=== PATIENT | female | born 1970 | race Caucasian/White ===

== ENCOUNTER 2017-09-09 01:01 | Emergency (ER) | payer OTHER, BC ==
[2017-09-09] MEDS ORDERED: Acetaminophen/HYDROcodone 325-7.5 MG Tab PO ONE (01:21)
--- NOTE | 2017-09-09 01:24 | EDM.PDOC ---
ED HPI GENERAL MEDICAL PROBLEM - General Chief Complaint: Lower Extremity Injury/Pain Stated Complaint: HURT RIGHT KNEE Time Seen by Provider: 09/09/17 01:15 - History of Present Illness INITIAL COMMENTS - FREE TEXT/NARRATIVE: HISTORY AND PHYSICAL: History of present illness: The patient is a 47 y/o female who presents complaints of right knee pain that started a day and a half ago when she slipped but did not fall to the ground. The patient states this occurred at work and she slipped and twisted her right knee but did not fall completely and has had persistent pain to the right knee since that time. Patient has no history of any injury in the past and has no proximal hip or thigh pain and no distal leg ankle or foot discomfort and no neurosensory changes in the leg. She has noticed significant swelling to the knee and has continued with her normal activities including weightbearing and working despite the pain and the injury. She has not been placing ice on it and has only taken one dose of ibuprofen earlier this evening. Please note that the patient did not fall completely to the ground she did not her head neck or back and has no head neck or back pain and no other systemic complaints Review of systems: As per history of present illness and below otherwise all systems reviewed and negative. Past medical history: As per history of present illness and as reviewed below otherwise noncontributory. Surgical history: As per history of present illness and as reviewed below otherwise noncontributory. Social history: No reported history of drug or alcohol abuse. Family history: As per history of present illness and as reviewed below otherwise noncontributory. Physical exam: Gen.: Well-developed well-nourished female who is nontoxic and uncomfortable with any movement of the lower extremity. Her vital signs been noted by me including her blood pressure HEENT: Atraumatic, normocephalic, negative for conjunctival pallor or scleral icterus, mucous membranes moist, throat clear, neck supple, nontender, trachea midline. Lungs: Clear to auscultation, breath sounds equal bilaterally, chest nontender. Heart: S1S2, regular rate and rhythm no overt murmurs Abdomen: Soft, nondistended, nontender. NABS Pelvis: Stable nontender. Genitourinary: Deferred. Rectal: Deferred. Extremities: Atraumatic with the exception of the right knee where there is diffuse soft tissue swelling and obviously seen suprapatellar effusion and there is diffuse tenderness more laterally at the knee without any crepitus or palpable bony deformities. The proximal thigh and hip are nontender and the distal leg calf ankle and foot are intact without tenderness swelling ecchymosis or neurosensory changes. The legs are, negative for cords or calf pain. Neurovascular unremarkable. Neuro: Awake, alert, oriented. Cranial nerves II through XII unremarkable. Cerebellum unremarkable. Motor and sensory unremarkable throughout. Exam nonfocal. Diagnostics: X-ray right knee Therapeutics: [place], French bandage and knee immobilizer, crutches Discussed with the patient her mild to moderate degenerative changes of the knee as well as the effusion but no fracture. We will place a french knee immobilizer crutches and I will refer her to orthopedics as she will need to have this further evaluated. I have strictly advised her that she cannot weight- bear until she is followed up and I will give her medications from [facility] to use for pain if the ibuprofen does not work. I have discussed with the patient her blood pressure and need to get that followed up and she has no current symptomatology for hypertension and her pain issue may be contributing to it but this will need follow-up. She states understanding. Impression: Right knee injury with effusion, rule out ligamentous injury, evidence of degenerative changes Definitive disposition and diagnosis as appropriate pending reevaluation and review of above. right knee Pain Score (Numeric/FACES): 10 - Related Data Allergies Allergy/AdvReac Type Severity Reaction Status Date / Time codeine Allergy Hives Verified 09/09/17 01:17 Home Meds: Home Meds . [No Known Home Meds] 09/09/17 [History] Review of Systems - Review of Systems Review Of Systems: ROS reveals no pertinent complaints other than HPI. ED EXAM, GENERAL - Physical Exam Exam: See Below (See dictation) Course - Vital Signs Last Recorded V/S: Last Vital Signs Temp 36.4 C 09/09/17 01:18 Pulse 79 09/09/17 01:18 Resp 18 09/09/17 01:18 BP 193/122 H 09/09/17 01:27 Pulse Ox 98 09/09/17 01:18 - Orders/Labs/Meds Orders: Active Orders 24 hr Category Date Time Status Knee 3V Rt [CR] Stat Exams 09/09/17 01:21 Taken DME for Discharge [COMM] Stat Oth 09/09/17 02:01 Ordered Meds: Medications Discontinued Medications Generic Name Dose Route Start Last Admin Trade Name Matt PRN Reason Stop Dose Admin Hydrocodone Bitart/Acetaminophen 1 tab 09/09/17 01:21 09/09/17 01:28 [place] 325-7.5 Mg PO 09/09/17 01:22 1 tab ONETIME ONE Administration Departure - Departure Time of Disposition: 02:02 Disposition: Home, Self-Care 01 Condition: Good Clinical Impression: Right knee injury Qualifiers: Encounter type: initial encounter Qualified Code(s): S89.91XA - Unspecified injury of right lower leg, initial encounter - Discharge Information Referrals: PCP,None [Primary Care Provider] - Forms: ED Department Discharge Additional Instructions: The following information is given to patients seen in the emergency department who are being discharged to home. This information is to outline your options for follow-up care. We provide all patients seen in our emergency department with a follow-up referral. The need for follow-up, as well as the timing and circumstances, are variable depending upon the specifics of your emergency department visit. If you don't have a primary care physician on staff, we will provide you with a referral. We always advise you to contact your personal physician following an emergency department visit to inform them of the circumstance of the visit and for follow-up with them and/or the need for any referrals to a consulting specialist. The emergency department will also refer you to a specialist when appropriate. This referral assures that you have the opportunity for followup care with a specialist. All of these measure are taken in an effort to provide you with optimal care, which includes your followup. Under all circumstances we always encourage you to contact your private physician who remains a resource for coordinating your care. When calling for followup care, please make the office aware that this follow-up is from your recent emergency room visit. If for any reason you are refused follow-up, please contact the [facility] emergency department at and ask to speak to the emergency department charge nurse. [facility] Specialty Care--Orthopedic clinic Professional [address] [id number] [facility] Primary care- Internal Medicine and Family [address] [address] Please use ice to knee immobilizer as shown at all times and remove the French at sleep times and use crutches and do not weight-bear until you are followed up in the clinic. 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 Please also call and follow-up in our primary care clinic for your blood pressure and to get a recheck and further evaluation as indicated. Return to ER as needed and as discussed - My Orders Last 24 Hours: My Active Orders 09/09/17 01:21 Knee 3V Rt [CR] Stat 09/09/17 02:01 DME for Discharge [COMM] Stat - Assessment/Plan Last 24 Hours: My Active Orders 09/09/17 01:21 Knee 3V Rt [CR] Stat 09/09/17 02:01 DME for Discharge [COMM] Stat
--- NOTE | 2017-09-09 13:29 | CR ---
EXAM DATE: 09/09/17 PATIENT'S AGE: 47 Patient: ANA ZEPEDA Facility: [place], [place] Site . Site : 1970 Study: XRay Knee Right [id number]/6/2017 1:53:54 AM Ordering Physician: Doctor Bach Final Report: Indication: Twisted knee yesterday. Technique: Right knee three views. Comparison: None. Findings: No evidence of acute fracture or dislocation. Mild to moderate tricompartmental degenerative changes. No additional osseous abnormality. Moderate to large suprapatellar effusion. Impression: Moderate to large suprapatellar effusion. No evidence of acute fracture. Mild to moderate degenerative changes. Dictated by Kamari Tam MD @ 09/09/2017 1:59:19 AM Dictated by: Kamari Tam MD @ 09/09/2017 01:59:40 (Electronic Signature) Report Signed by Proxy. ALEJANDRA
== END 2017-09-09 02:40 | disposition home or self-care (01) ==
LOC: MW.ED 01:01
DX: S89.91XA Unspecified injury of right lower leg, initial encounter (principal); M25.461 Effusion, right knee; W18.49XA Other slipping, tripping and stumbling without falling, initial encounter; Z88.5 Allergy status to narcotic agent; M25.561 Pain in right knee; M11.261 Other chondrocalcinosis, right knee; M17.11 Unilateral primary osteoarthritis, right knee
CPT/HCPCS: 73562; 73564; 99283; A9270; 99284

== ENCOUNTER 2018-01-09 10:48 | Emergency (ER) | payer BC, OTHER ==
[2018-01-09] MEDS ORDERED: Diphtheria,Pertussis(Acell),Tetanus Vaccine 0.5 ML Syringe IM ONE (11:16)
[2018-01-09] MEDS ORDERED: Lidocaine 1% 20 ML MDV INJECT ONE (11:16)
[2018-01-09] MEDS ORDERED: Bacitracin Oint 1 GM U/D Packet TOP ONE (11:17)
--- NOTE | 2018-01-09 11:26 | EDM.PDOC ---
ED HPI GENERAL MEDICAL PROBLEM - General Chief Complaint: Lower Extremity Injury/Pain Stated Complaint: R LEG INJURY Time Seen by Provider: 01/09/18 10:58 Source of Information: Reports: Patient History Limitations: Reports: No Limitations - History of Present Illness INITIAL COMMENTS - FREE TEXT/NARRATIVE: HISTORY AND PHYSICAL: History of present illness: Patient is a 47-year-old female who presents to the emergency room today with complaints of a puncture wound to the right lateral thigh. She states last night a "cat tree" which is a plastic/would animal housing system, fell over and hit her in the thigh. This occurred at approximately 8 PM last night. Since that time the area continues to have minimal bleeding with serosanguineous drainage. Patient is unsure of her last tetanus. Review of systems: As per history of present illness and below otherwise all systems reviewed and negative. Past medical history: As per history of present illness and as reviewed below otherwise noncontributory. Surgical history: As per history of present illness and as reviewed below otherwise noncontributory. Social history: No reported history of drug or alcohol abuse. Family history: As per history of present illness and as reviewed below otherwise noncontributory. Physical exam: General: Well-developed and well-nourished 47-year-old female. Nontoxic appearing and in no acute distress. HEENT: Atraumatic, normocephalic, pupils equal and reactive bilaterally, negative for conjunctival pallor or scleral icterus, mucous membranes moist, throat clear, neck supple, nontender, trachea midline. No drooling or trismus noted. No meningeal signs Lungs: Clear to auscultation, breath sounds equal bilaterally, chest nontender. Heart: S1S2, regular rate and rhythm without overt murmur Abdomen: Soft, nondistended, nontender. Negative for masses or hepatosplenomegaly. Negative for costovertebral tenderness. Pelvis: Stable nontender. Genitourinary: Deferred. Rectal: Deferred. Skin: 3 cm gaping laceration to right mid lateral thigh. Otherwise skin is warm and dry. No lesions or rashes noted. Extremities: Moves all extremities per self; see skin assessment. She is negative for cords or calf pain. Denies any numbness or tingling. Able to weight -bear without any difficulty or deficits. Neurovascular unremarkable. Neuro: Awake, alert, oriented. Cranial nerves II through XII unremarkable. Cerebellum unremarkable. Motor and sensory unremarkable throughout. Exam nonfocal. Notes: Will update the patient's tetanus. Area was anesthetized with 1% lidocaine. Wound wash/irrigation of the gaping wound. 5-0 nylon, #4 interrupted loosely applied. Bacitracin, nonstick dressing applied with thorough education. Will place patient on Keflex TID x 10 days. We reviewed signs and symptoms that would prompt her to come back to the emergency room. Repeat BP prior to discharge was 178/96, she states she "its always high at the doctors office". She will follow up with per PCP as directed. She voices understanding of discharge instructions and is agreeable to plan of care. She denies any further questions at this time. Diagnostics: [] Therapeutics: DTaP, lidocaine, bacitracin, wound care, nonstick dressing Impression: Puncture wound Laceration Plan: 1. Please continue to monitor for signs of infection. He will be placed on an antibiotic, Keflex 1 tab 3 times daily 10 days. The area clean and dry. 2. Sutures to be removed in 10-12 days. 3. Tramadol has been prescribed for moderate to severe pain. This medication may cause drowsiness so do not take it will driving her needing to be functioning outside of the house. Tylenol and/or ibuprofen may be used. Rest, ice, elevate the extremity. 4. Follow-up with your primary caregiver in the next 1-2 days. Return to the ED as needed and as discussed. Definitive disposition and diagnosis as appropriate pending reevaluation and review of above. Onset Date: 01/08/18 Duration: Hour(s): Location: Reports: Lower Extremity, Right Right Upper Leg Pain Score (Numeric/FACES): 10 - Related Data Allergies Allergy/AdvReac Type Severity Reaction Status Date / Time codeine Allergy Hives Verified 09/09/17 01:17 Home Meds: Home Meds . 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 ankle surgery Social & Family History - Family History Family Medical History: Noncontributory - Tobacco Use Smoking Status *Q: Never Smoker - Caffeine Use Caffeine Use: Reports: Energy Drinks - Recreational Drug Use Recreational Drug Use: No Review of Systems - Review of Systems Review Of Systems: ROS reveals no pertinent complaints other than HPI. ED EXAM, GENERAL - Physical Exam Exam: See Below (See dictation) ED TRAUMA EXTREMITY PROCEDURES - Laceration/Wound Repair Right lateral Thigh Lac/Wound Length In cm: 3 Appearance: Subcutaneous Distal NVT: No Tendon Injury Local Anesthesia - Lidocaine (Xylocaine): 1% Plain Local Anesthetic Volume: 5cc Skin Prep: Chlorhexidine (Hibiciens), Saline, Sterile Drape, Other (Wound Wash) Saline Irrigation (cc's): 30 Exploration/Debridement/Repair: Wound Explored, In a Bloodless Field, No Foreign Material Found Closed With: Sutures Suture Size: other (5-0) # of Sutures: 4 Suture Type: Nylon, Interrupted Sterile Dressing Applied: Provider Tetanus Status Addressed: Yes Complications: No Progress/Comments: Nonstick dressing applied Course - Vital Signs Last Recorded V/S: Last Vital Signs Temp 98.9 F 01/09/18 11:11 Pulse 75 01/09/18 11:11 Resp 20 01/09/18 11:11 BP 221/131 H 01/09/18 11:11 Pulse Ox 99 01/09/18 11:11 - Orders/Labs/Meds Orders: Active Orders 24 hr Category Date Time Status Communication Order [RC] STAT Care 01/09/18 11:17 Ordered Vaccines to be Administered [RC] PER UNIT ROUTINE Care 01/09/18 11:16 Ordered Meds: Medications Discontinued Medications Generic Name Dose Route Start Last Admin Trade Name Freq PRN Reason Stop Dose Admin Bacitracin 1 dose 01/09/18 11:17 01/09/18 11:30 Bacitracin Oint 1 Gm TOP 01/09/18 11:18 1 dose ONETIME ONE Administration Diphtheria/Tetanus/Acell Pertussis 0.5 ml 01/09/18 11:16 01/09/18 11:30 Adacel IM 01/09/18 11:17 0.5 ml .ONCE ONE Administration Lidocaine HCl 20 ml 01/09/18 11:16 01/09/18 11:30 Xylocaine 1% INJECT 01/09/18 11:17 20 ml ONETIME ONE Administration Departure - Departure Time of Disposition: 11:45 Disposition: Home, Self-Care 01 Clinical Impression: Laceration, Puncture wound - Discharge Information Instructions: Puncture Wound, [id number], Laceration Care, Adult, Easy-to- Read Referrals: PCP,None [Primary Care Provider] - Forms: ED Department Discharge Additional Instructions: The following information is given to patients seen in the emergency department who are being discharged to home. This information is to outline your options for follow-up care. We provide all patients seen in our emergency department with a follow-up referral. The need for follow-up, as well as the timing and circumstances, are variable depending upon the specifics of your emergency department visit. If you don't have a primary care physician on staff, we will provide you with a referral. We always advise you to contact your personal physician following an emergency department visit to inform them of the circumstance of the visit and for follow-up with them and/or the need for any referrals to a consulting specialist. The emergency department will also refer you to a specialist when appropriate. This referral assures that you have the opportunity for follow-up care with a specialist. All of these measure are taken in an effort to provide you with optimal care, which includes your follow-up. Under all circumstances we always encourage you to contact your private physician who remains a resource for coordinating your care. When calling for follow-up care, please make the office aware that this follow-up is from your recent emergency room visit. If for any reason you are refused follow-up, please contact the [facility] Emergency Department at and asked to speak to the emergency department charge nurse. [facility] [address] [place] [id number] [facility] [address] [place] [id number] 1. Please continue to monitor for signs of infection. He will be placed on an antibiotic, Keflex 1 tab 3 times daily 10 days. The area clean and dry. 2. Sutures to be removed in 10-12 days. 3. Tramadol has been prescribed for moderate to severe pain. This medication may cause drowsiness so do not take it will driving her needing to be functioning outside of the house. Tylenol and/or ibuprofen may be used. Rest, ice, elevate the extremity. 4. Follow-up with your primary caregiver in the next 1-2 days. Return to the ED as needed and as discussed. - My Orders Last 24 Hours: My Active Orders 01/09/18 11:16 Vaccines to be Administered [RC] PER UNIT ROUTINE 01/09/18 11:17 Communication Order [RC] STAT - Assessment/Plan Last 24 Hours: My Active Orders 01/09/18 11:16 Vaccines to be Administered [RC] PER UNIT ROUTINE 01/09/18 11:17 Communication Order [RC] STAT
== END 2018-01-09 11:57 | disposition home or self-care (01) ==
LOC: MW.ED 10:48
DX: S71.131A Puncture wound without foreign body, right thigh, initial encounter (principal); I50.9 Heart failure, unspecified; Z23 Encounter for immunization; Z88.5 Allergy status to narcotic agent; W20.8XXA Other cause of strike by thrown, projected or falling object, initial encounter
CPT/HCPCS: 90471; 90715; 99283; 99283-25

== ENCOUNTER 2018-12-18 02:53 | Observation (INO) | payer SELFPAY ==
[2018-12-18] MEDS ORDERED: Sodium Chloride 0.9% 2.5 ML Syringe FLUSH PRN (03:07)
[2018-12-18] MEDS ORDERED: Sodium Chloride 0.9% 10 ML Syringe FLUSH PRN (03:07)
[2018-12-18] MEDS ORDERED: hydrALAZINE 20 MG/ML SDV IVPUSH ONE (03:07)
[2018-12-18 03:30] LABS: CHLORIDE,CL 106 mmol/L (98-107); SODIUM,NA 142 mmol/L (136-145)
--- NOTE | 2018-12-18 03:42 | CR ---
Indication: Chest pain, shortness of breath Technique: Chest 1 view Comparison: None Findings/Impression: Cardiac size is prominent. Normal superior mediastinum. With normal pulmonary vasculature. Lungs and pleural spaces are clear. No acute osseous abnormality. Dictated by Ynes Zheng MD @ Dec 18 2018 3:39AM Signed by Dr. Ynes Zheng @ Dec 18 2018 3:40AM
[2018-12-18] MEDS ORDERED: Levofloxacin/Dextrose 5%-Water 750 MG in Premix Bag 1 BAG IV ONE (05:03)
--- NOTE | 2018-12-18 05:06 | EDM.PDOC ---
ED HPI GENERAL MEDICAL PROBLEM - General Chief Complaint: Respiratory Problem Stated Complaint: CHEST PAIN Time Seen by Provider: 12/18/18 05:01 - History of Present Illness INITIAL COMMENTS - FREE TEXT/NARRATIVE: HISTORY AND PHYSICAL: History of present illness: Patient 48-year-old white female no significant past medical history presents with concern of chest pain cough or last 4 days she denies fever chills vomiting diarrhea or other complaints. Review of systems: As per history of present illness and below otherwise all systems reviewed and negative. Past medical history: As per history of present illness and as reviewed below otherwise noncontributory. Surgical history: As per history of present illness and as reviewed below otherwise noncontributory. Social history: No reported history of drug or alcohol abuse. Family history: As per history of present illness and as reviewed below otherwise noncontributory. Physical exam: HEENT: Atraumatic, normocephalic, pupils reactive, negative for conjunctival pallor or scleral icterus, mucous membranes moist, throat clear, neck supple, nontender, trachea midline. Lungs: Clear to auscultation, breath sounds equal bilaterally, chest nontender. Heart: S1S2, regular, negative for clicks, rubs, or JVD. Abdomen: Soft, nondistended, nontender. Negative for masses or hepatosplenomegaly. Negative for costovertebral tenderness. Pelvis: Stable nontender. Genitourinary: Deferred. Rectal: Deferred. Extremities: Atraumatic, negative for cords or calf pain. Neurovascular unremarkable. Neuro: Awake, alert, oriented. Cranial nerves II through XII unremarkable. Cerebellum unremarkable. Motor and sensory unremarkable throughout. Exam nonfocal. Diagnostics: CBC CMP troponin PT/INR chest x-ray blood cultures 2 lactate influenza screen Therapeutics: IV O2 monitor Levaquin 750 mg IV Impression: #1 pneumonia Definitive disposition and diagnosis as appropriate pending reevaluation and review of above. chest area Pain Score (Numeric/FACES): 6 - Related Data Allergies Allergy/AdvReac Type Severity Reaction Status Date / Time codeine Allergy Hives Verified 12/18/18 02:57 Home Meds: Home Meds . 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 ankle surgery Social & Family History - Family History Family Medical History: Noncontributory - Tobacco Use Smoking Status *Q: Never Smoker - Caffeine Use Caffeine Use: Reports: Soda - Recreational Drug Use Recreational Drug Use: No ED ROS GENERAL - Review of Systems Review Of Systems: ROS reveals no pertinent complaints other than HPI. ED EXAM, GENERAL - Physical Exam Exam: See Below (See dictation) Course - Vital Signs Last Recorded V/S: Last Vital Signs Temp 36.4 C 12/18/18 02:57 Pulse 85 12/18/18 04:17 Resp 19 12/18/18 04:17 BP 114/76 12/18/18 04:17 Pulse Ox 97 12/18/18 04:17 - Orders/Labs/Meds Orders: Active Orders 24 hr Category Date Time Status Cardiac Monitoring [RC] . DIRECTED Care 12/18/18 03:07 Active EKG Documentation Completion [RC] STAT Care 12/18/18 03:07 Active Pulse Oximetry [RC] CONTINUOUS Care 12/18/18 03:07 Active Sodium Chloride 0.9% [Saline Flush] Med 12/18/18 03:07 Active 10 ml FLUSH ASDIRECTED PRN Sodium Chloride 0.9% [Saline Flush] Med 12/18/18 03:07 Active 2.5 ml FLUSH ASDIRECTED PRN Saline Lock Insert [OM.PC] Stat Oth 12/18/18 03:07 Ordered Medication Orders Sodium Chloride (Saline Flush) 10 ml FLUSH ASDIRECTED PRN PRN Reason: Keep Vein Open Sodium Chloride (Saline Flush) 2.5 ml FLUSH ASDIRECTED PRN PRN Reason: Keep Vein Open Labs: Laboratory Tests 12/18/18 12/18/18 12/18/18 Range/Units 03:00 03:00 03:00 WBC 2.99 L (4.0-11.0) K/uL RBC 4.37 (4.30-5.90) M/uL Hgb 12.9 (12.0-16.0) g/dL Hct 39.8 (36.0-46.0) % MCV 91.1 (80.0-98.0) fL MCH 29.5 (27.0-32.0) pg MCHC 32.4 (31.0-37.0) g/dL RDW Std Deviation 55.9 (28.0-62.0) fl RDW Coeff of Raissa 17 H (11.0-15.0) % Plt Count 255 (150-400) K/uL MPV 11.20 (7.40-12.00) fL Neut % (Auto) 47.5 L (48.0-80.0) % Lymph % (Auto) 38.1 (16.0-40.0) % [place] % (Auto) 6.4 (0.0-15.0) % Eos % (Auto) 5.0 (0.0-7.0) % Baso % (Auto) 3.0 H (0.0-1.5) % Neut # (Auto) 1.4 (1.4-5.7) K/uL Lymph # (Auto) 1.1 (0.6-2.4) K/uL [place] # (Auto) 0.2 (0.0-0.8) K/uL Eos # (Auto) 0.2 (0.0-0.7) K/uL Baso # (Auto) 0.1 (0.0-0.1) K/uL Nucleated RBC % 0.0 /100WBC Nucleated RBCs # 0 K/uL INR 0.99 Sodium 142 (136-145) mmol/L Potassium 3.5 (3.5-5.1) mmol/L Chloride 106 (98-107) mmol/L Carbon Dioxide 25.9 (21.0-32.0) mmol/L BUN 9 (7.0-18.0) mg/dL Creatinine 0.8 (0.6-1.0) mg/dL Est Cr Clr Drug Dosing 93.38 mL/min Estimated GFR (MDRD) > 60.0 ml/min Glucose 119 H (74-106) mg/dL Calcium 8.4 L (8.5-10.1) mg/dL Total Bilirubin 0.3 (0.2-1.0) mg/dL AST 16 (15-37) IU/L ALT 16 (14-63) IU/L Alkaline Phosphatase 87 (46-116) U/L Troponin I < 0.050 (0.000-0.056) ng/mL Total Protein 8.1 (6.4-8.2) g/dL Albumin 3.1 L (3.4-5.0) g/dL Globulin 5.0 H (2.6-4.0) g/dL Albumin/Globulin Ratio 0.6 L (0.9-1.6) Meds: Medications Generic Name Dose Route Start Last Admin Trade Name Freq PRN Reason Stop Dose Admin Sodium Chloride 10 ml 12/18/18 03:07 Saline Flush FLUSH ASDIRECTED PRN Keep Vein Open Sodium Chloride 2.5 ml 12/18/18 03:07 Saline Flush FLUSH ASDIRECTED PRN Keep Vein Open Discontinued Medications Generic Name Dose Route Start Last Admin Trade Name Freq PRN Reason Stop Dose Admin Hydralazine HCl 10 mg 12/18/18 03:07 12/18/18 03:14 Apresoline IVPUSH 12/18/18 03:08 10 mg ONETIME ONE Administration Departure - Departure Time of Disposition: 05:06 Disposition: Refer to Observation Condition: Good Clinical Impression: Pneumonia, Chest pain - Discharge Information Referrals: PCP,None [Primary Care Provider] - - My Orders Last 24 Hours: My Active Orders 12/18/18 03:07 Cardiac Monitoring [RC] . DIRECTED EKG Documentation Completion [RC] STAT Pulse Oximetry [RC] CONTINUOUS Sodium Chloride 0.9% [Saline Flush] 10 ml FLUSH ASDIRECTED PRN Sodium Chloride 0.9% [Saline Flush] 2.5 ml FLUSH ASDIRECTED PRN Saline Lock Insert [OM.PC] Stat - Assessment/Plan Last 24 Hours: My Active Orders 12/18/18 03:07 Cardiac Monitoring [RC] . DIRECTED EKG Documentation Completion [RC] STAT Pulse Oximetry [RC] CONTINUOUS Sodium Chloride 0.9% [Saline Flush] 10 ml FLUSH ASDIRECTED PRN Sodium Chloride 0.9% [Saline Flush] 2.5 ml FLUSH ASDIRECTED PRN Saline Lock Insert [OM.PC] Stat
[2018-12-18] MEDS ORDERED: Sodium Chloride 0.9% 1,000 ML IV SCH (05:15)
--- NOTE | 2018-12-18 08:56 | PCM.HP ---
H&P History of Present Illness - General Date of Service: 12/18/18 Admit Problem/Dx: Admission Diagnosis/Problem Admission Diagnosis/Problem Atypical chest pain - History of Present Illness Initial Comments - Free Text/Narative: The patient is a 48-year-old female who presented to the ER overnight with sharp burning pain in her chest that radiated to both shoulders. She reports associated shortness of breath. She reports the pain gets worse with coughing. She reports she's been having episodes like this intermittently for the past 4 days. She also reports that when she has a coughing fit and her chest hurts, she develops tingling in her lips and fingers. She endorses subjective fevers but no nausea/vomiting She denies any history of [place], but does know she was diagnosed with hypertension in the past. She was supposed to follow-up with the primary care physician to manage her blood pressure, but she never did. On further questioning later she did endorse orthopnea and dyspnea on exertion as well as swelling in her legs. She denies known history of heart failure. In the ER, they workup included labs showed a white count of 2.99, negative troponin, negative influenza. Chest x-ray showed no acute cardiopulmonary process. EKG showed sinus rhythm with no ST elevations. In the ER, her blood pressure was 205/139, she was given 10 mg hydralazine and this improved. She was also started on IV fluids in the ER. chest area Pain Score (Numeric/FACES): 6 - Related Data Allergies/Adverse Reactions: Allergies Allergy/AdvReac Type Severity Reaction Status Date / Time codeine Allergy Hives Verified 12/18/18 02:57 Home Medications: Home Meds . 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 ankle surgery Social & Family History - Family History Family Medical History: Noncontributory - Tobacco Use Smoking Status *Q: Never Smoker - Caffeine Use Caffeine Use: Reports: Soda - Recreational Drug Use Recreational Drug Use: No H&P Review of Systems - Review of Systems: Review Of Systems: See Below General: Reports: Fever, Chills HEENT: Reports: Headaches, Sinus Congestion Pulmonary: Reports: Shortness of Breath, Cough Cardiovascular: Reports: Chest Pain, Dyspnea on Exertion, Orthopnea, Edema Gastrointestinal: Reports: No Symptoms Genitourinary: Reports: No Symptoms Musculoskeletal: Reports: No Symptoms Skin: Reports: No Symptoms Psychiatric: Reports: No Symptoms Neurological: Reports: No Symptoms Hematologic/Lymphatic: Reports: No Symptoms Immunologic: Reports: No Symptoms Exam - Exam Exam: See Below - Vital Signs Vital Signs: Last Vital Signs Temp 98.2 F 12/18/18 06:55 Pulse 86 12/18/18 06:55 Resp 18 12/18/18 06:55 BP 141/88 H 12/18/18 06:55 Pulse Ox 98 12/18/18 06:55 Weight: 89.086 kg - Exam General: Alert, Oriented, Cooperative HEENT: Conjunctiva Clear, Mucosa Moist & [place], Posterior Pharynx Clear Neck: Supple Lungs: Clear to Auscultation, Normal Respiratory Effort Cardiovascular: Regular Rate, Regular Rhythm GI/Abdominal Exam: Normal Bowel Sounds, Soft, Non-Tender, No Distention Extremities: Pedal Edema Skin: Warm, Dry, Intact Neurological: Cranial Nerves Intact Neuro Extensive - Mental Status: Alert, Oriented x3 Psychiatric: Alert, Normal Affect, Normal Mood - Patient Data Lab Results Last 24 hrs: Laboratory Results - last 24 hr 12/18/18 12/18/18 12/18/18 Range/Units 03:00 03:00 03:00 WBC 2.99 L (4.0-11.0) K/uL RBC 4.37 (4.30-5.90) M/uL Hgb 12.9 (12.0-16.0) g/dL Hct 39.8 (36.0-46.0) % MCV 91.1 (80.0-98.0) fL MCH 29.5 (27.0-32.0) pg MCHC 32.4 (31.0-37.0) g/dL RDW Std Deviation 55.9 (28.0-62.0) fl RDW Coeff of Raissa 17 H (11.0-15.0) % Plt Count 255 (150-400) K/uL MPV 11.20 (7.40-12.00) fL Neut % (Auto) 47.5 L (48.0-80.0) % Lymph % (Auto) 38.1 (16.0-40.0) % [place] % (Auto) 6.4 (0.0-15.0) % Eos % (Auto) 5.0 (0.0-7.0) % Baso % (Auto) 3.0 H (0.0-1.5) % Neut # (Auto) 1.4 (1.4-5.7) K/uL Lymph # (Auto) 1.1 (0.6-2.4) K/uL [place] # (Auto) 0.2 (0.0-0.8) K/uL Eos # (Auto) 0.2 (0.0-0.7) K/uL Baso # (Auto) 0.1 (0.0-0.1) K/uL Nucleated RBC % 0.0 /100WBC Nucleated RBCs # 0 K/uL INR 0.99 Sodium 142 (136-145) mmol/L Potassium 3.5 (3.5-5.1) mmol/L Chloride 106 (98-107) mmol/L Carbon Dioxide 25.9 (21.0-32.0) mmol/L BUN 9 (7.0-18.0) mg/dL Creatinine 0.8 (0.6-1.0) mg/dL Est Cr Clr Drug Dosing 93.38 mL/min Estimated GFR (MDRD) > 60.0 ml/min Glucose 119 H (74-106) mg/dL Calcium 8.4 L (8.5-10.1) mg/dL Total Bilirubin 0.3 (0.2-1.0) mg/dL AST 16 (15-37) IU/L ALT 16 (14-63) IU/L Alkaline Phosphatase 87 (46-116) U/L Troponin I < 0.050 (0.000-0.056) ng/mL Total Protein 8.1 (6.4-8.2) g/dL Albumin 3.1 L (3.4-5.0) g/dL Globulin 5.0 H (2.6-4.0) g/dL Albumin/Globulin Ratio 0.6 L (0.9-1.6) Result Diagrams: 12/18/18 03:00 12/18/18 03:00 Ke Results Last 24 hrs: Microbiology 12/18/18 03:12 Influenza Type A Antigen Screen - Final Nasopharyngeal Swab NEGATIVE INFLUENZA A VIRUS AG Influenza Type B Antigen Screen - Final NEGATIVE INFLUENZA B VIRUS AG Problem List Initiated/Reviewed/Updated: Yes Orders Last 24hrs: Active Orders 24 hr Category Date Time Status Patient Status [ADT] Stat ADT 12/18/18 05:14 Active Cardiac Monitoring [RC] . DIRECTED Care 12/18/18 03:07 Active EKG Documentation Completion [RC] STAT Care 12/18/18 03:07 Active Pulse Oximetry [RC] CONTINUOUS Care 12/18/18 03:07 Active Telemetry Monitoring [Cardiac Monitoring] [RC] Q8H Care 12/18/18 06:00 Active TROPONIN I [CHEM] Timed Lab 12/18/18 09:00 Ordered TROPONIN I [CHEM] Timed Lab 12/18/18 15:00 Ordered Sodium Chloride 0.9% [Normal Saline] 1,000 ml Med 12/18/18 05:15 Active IV ASDIRECTED Sodium Chloride 0.9% [Saline Flush] Med 12/18/18 03:07 Active 10 ml FLUSH ASDIRECTED PRN Sodium Chloride 0.9% [Saline Flush] Med 12/18/18 03:07 Active 2.5 ml FLUSH ASDIRECTED PRN Saline Lock Insert [OM.PC] Stat Oth 12/18/18 03:07 Ordered Medication Orders Sodium Chloride (Normal Saline) 1,000 mls @ 125 mls/hr IV ASDIRECTED REBECCA Last Admin: 12/18/18 05:46 Dose: 125 mls/hr Sodium Chloride (Saline Flush) 10 ml FLUSH ASDIRECTED PRN PRN Reason: Keep Vein Open Sodium Chloride (Saline Flush) 2.5 ml FLUSH ASDIRECTED PRN PRN Reason: Keep Vein Open Assessment/Plan Comment:: 1. Admit for observation 2. Code status- full 3. Vitals per routine 4. Strict I/Os 5. Diet- cardiac 6. DVT prophylaxis with SCDs 7. Atypical chest pain- possible URI vs HTN vs heart failure- we will watch her on telemetry and trend troponins. Due to her history of orthopnea and edema we will diuresis her with 40 mg IV Lasix. She will need an echo but that can not be done over the weekend. Will give her Tessalon perles for cough. 8. HTN- will start HCTZ
[2018-12-18] MEDS ORDERED: Furosemide 40 MG/4 ML VIAL IVPUSH ONE (11:10)
[2018-12-18] MEDS ORDERED: Ondansetron 4 MG/2 ML SDV IVPUSH PRN (11:23)
[2018-12-18] MEDS: Benzonatate 100 MG Cap PO PRN ×2 (12:01→19:59)
[2018-12-18] MEDS: Acetaminophen 325 MG Tab PO PRN ×2 (12:01→19:56)
[2018-12-18] MEDS: hydrALAZINE 20 MG/ML SDV IVPUSH PRN (13:18)
[2018-12-18] MEDS ORDERED: Albuterol/Ipratropium 3.0-0.5 MG/3 ML Neb Soln NEB PRN (15:32)
[2018-12-18] MEDS: guaiFENesin 600 MG Tab.ER PO SCH (18:25)
[2018-12-18] MEDS: Hydrochlorothiazide 12.5 MG Cap PO SCH (19:59)
[2018-12-19] MEDS: Acetaminophen 325 MG Tab PO PRN (03:02)
[2018-12-19] MEDS: hydrALAZINE 20 MG/ML SDV IVPUSH PRN (04:25)
[2018-12-19] MEDS ORDERED: Morphine 2 MG/ML Syringe IVPUSH PRN (04:42)
[2018-12-19 06:40] LABS: CHLORIDE,CL 101 mmol/L (98-107); SODIUM,NA 138 mmol/L (136-145)
[2018-12-19] MEDS: guaiFENesin 600 MG Tab.ER PO SCH (08:45)
[2018-12-19] MEDS ORDERED: Iopamidol 755 MG/ML 500 ML Multipack Bottle IVPUSH STA (10:25)
--- NOTE | 2018-12-19 11:02 | CT ---
INDICATION: Chest pain and short of breath TECHNIQUE : CT scan of the chest. CTA PE protocol. IV contrast. FINDINGS: Pulmonary arteries:No pulmonary artery filling defects. Heart/mediastinum:No adenopathy or pericardial effusion. Retrocardiac hiatal hernia. Lungs and pleura:No effusions or pneumothorax. Anterior 7 millimeter right middle lobe pulmonary nodule. Cluster of small nodules in the left lower lobe measuring between 2 millimeters and 3 millimeters. Image 37. Image 48. Scarring in the lower lobes. Abdomen/skeletal:Thoracic scoliosis no other significant skeletal abnormalities. Unremarkable limited upper abdomen. IMPRESSION: No signs for acute pulmonary embolus. Incidental pulmonary nodules are present suggest follow-up according to [employer] society guidelines. [employer] SOCIETY GUIDELINES - SOLID NODULES: SINGLE LOW RISK - nodule less than 6 mm: No routine follow-up. - nodule 6-8 mm: CT at 6-12 months, then consider CT at 18-24 months. - nodule greater than 8 mm: Consider CT at 3 months, PET/CT or tissue sampling. SINGLE HIGH RISK - nodule less than 6 mm: Optional CT at 12 months. - nodule 6-8 mm: CT at 6-12 months, then CT at 18-24 months. - nodule greater than 8 mm: Consider CT at 3 months, PET/CT or tissue sampling. MULTIPLE LOW RISK - nodule less than 6 mm: No routine follow-up. - nodule 6-8 mm: CT at 3-6 months, then consider CT at 18-24 months. - nodule greater than 8 mm: CT at 3-6 months, then consider CT at 18-24 months. MULTIPLE HIGH RISK - nodule less than 6 mm: Optional CT at 12 months. - nodule 6-8 mm: CT at 3-6 months, then at 18-24 months. - nodule greater than 8 mm: CT at 3-6 months, then at 18-24 months. LOW RISK = minimal or absent history of smoking or other known risk factors. HIGH RISK = history of smoking or other known risk factors. KNOWN RISK FACTORS: history of lung cancer in first-degree relative; exposure to asbestos, radon, or uranium. Please note that all CT scans at this facility use dose modulation, iterative reconstruction, and/or weight-based dosing when appropriate to reduce radiation dose to as low as reasonably achievable. Dictated by Mark Ramos MD @ Dec 19 2018 10:49AM Signed by Dr. Mark Ramos @ Dec 19 2018 11:00AM
[2018-12-19] MEDS ORDERED: cefTRIAXone 1 GM in Sodium Chloride 0.9% 50 ML IV SCH (15:15)
[2018-12-19] MEDS ORDERED: Azithromycin 500 MG in Sodium Chloride 0.9% 250 ML IV SCH (15:15)
--- NOTE | 2018-12-19 15:51 | PCM.DCSUM1 ---
Discharge Summary - Discharge Data Discharge Date: 12/19/18 Discharge Disposition: Home, Self-Care 01 Condition: Good - Patient Summary/Data Hospital Course: 48-year-old female who was admitted for chest pain. she presented with several day history of nonproductive cough. During her coughing fits she developes sharp pleuritiy pain in the left upper chest. She also reports several month history of shortness of breath, leg edema, tingling in the extremeties and vaginal bleeding. She was monitored overnight and ruled out for acute coronary syndrome with serail negative cardiac enzymes. CT scan of chest did not show PE. It did show 7mm nodule in right middle lobe which patient was informed of the recommendation of follow up CT in 6 months. Today the patient is agreeable to discharge. I suspect her acute illness is due to upper respiratory tract infection. During her stay she was noted to have elevated blood pressures and she was given a prescription of lisinopril. She is to follow up with her PCP at [facility]. - Discharge Plan Prescriptions/Med Rec: Lisinopril [Prinivil] 10 mg PO DAILY #30 tablet Home Medications: Home Meds Lisinopril [Prinivil] 10 mg PO DAILY #30 tablet 12/19/18 [Rx] Forms: ED Department Discharge Referrals: PCP,None [Primary Care Provider] - - Discharge Summary/Plan Comment DC Time >30 min.: No - Patient Data Vitals - Most Recent: Last Vital Signs Temp 36.6 C 12/19/18 11:00 Pulse 77 12/19/18 11:00 Resp 16 12/19/18 11:00 BP 157/97 H 12/19/18 11:00 Pulse Ox 97 12/19/18 11:00 Weight - Most Recent: 89.086 kg I&O - Last 24 hours: Intake & Output 12/19/18 12/19/18 12/19/18 06:59 14:59 22:59 Intake Total 400 Output Total 0 Balance 400 Lab Results - Last 24 hrs: Laboratory Results - last 24 hr 12/18/18 12/19/18 12/19/18 Range/Units 16:00 05:56 05:56 WBC 5.88 (4.0-11.0) K/uL RBC 4.31 (4.30-5.90) M/uL Hgb 12.6 (12.0-16.0) g/dL Hct 38.9 (36.0-46.0) % MCV 90.3 (80.0-98.0) fL MCH 29.2 (27.0-32.0) pg MCHC 32.4 (31.0-37.0) g/dL RDW Std Deviation 56.0 (28.0-62.0) fl RDW Coeff of Raissa 17 H (11.0-15.0) % Plt Count 247 (150-400) K/uL MPV 10.90 (7.40-12.00) fL Neut % (Auto) 70.7 (48.0-80.0) % Lymph % (Auto) 16.7 (16.0-40.0) % [place] % (Auto) 10.2 (0.0-15.0) % Eos % (Auto) 1.5 (0.0-7.0) % Baso % (Auto) 0.9 (0.0-1.5) % Neut # (Auto) 4.2 (1.4-5.7) K/uL Lymph # (Auto) 1.0 (0.6-2.4) K/uL [place] # (Auto) 0.6 (0.0-0.8) K/uL Eos # (Auto) 0.1 (0.0-0.7) K/uL Baso # (Auto) 0.1 (0.0-0.1) K/uL Nucleated RBC % 0.0 /100WBC Nucleated RBCs # 0 K/uL Sodium 138 (136-145) mmol/L Potassium 3.2 L (3.5-5.1) mmol/L Chloride 101 (98-107) mmol/L Carbon Dioxide 22.5 (21.0-32.0) mmol/L BUN 7 (7.0-18.0) mg/dL Creatinine 0.8 (0.6-1.0) mg/dL Est Cr Clr Drug Dosing 94.01 mL/min Estimated GFR (MDRD) > 60.0 ml/min Glucose 109 H (74-106) mg/dL Calcium 8.8 (8.5-10.1) mg/dL Urine Color RED Urine Appearance SLT CLOUDY Urine pH 6.5 (5.0-8.0) Ur Specific [place] 1.020 (1.001-1.035) Urine Protein 30 H (NEGATIVE) mg/dL Urine Glucose (UA) NEGATIVE (NEGATIVE) mg/dL Urine Ketones NEGATIVE (NEGATIVE) mg/dL Urine Occult Blood LARGE H (NEGATIVE) Urine Nitrite NEGATIVE (NEGATIVE) Urine Bilirubin NEGATIVE (NEGATIVE) Urine Urobilinogen 0.2 (<2.0) EU/dL Ur Leukocyte Esterase NEGATIVE (NEGATIVE) Urine RBC TOO NUMEROUS TO CT H (0-2/HPF) Urine WBC 0-1 (0-5/HPF) Ur Epithelial Cells FEW (NONE-FEW) Urine Bacteria FEW (NEGATIVE) Med Orders - Current: Current Medications Acetaminophen (Tylenol) 650 mg PO Q4H PRN PRN Reason: Pain/Fever Last Admin: 12/19/18 03:02 Dose: 650 mg Albuterol/Ipratropium (Duoneb 3.0-0.5 Mg/3 Ml) 3 ml NEB Q4HRRT PRN PRN Reason: Cough Last Admin: 12/18/18 17:02 Dose: 3 ml Benzonatate (Tessalon Perles) 100 mg PO TID PRN PRN Reason: Cough Last Admin: 12/18/18 19:59 Dose: 100 mg Guaifenesin (Mucinex) 600 mg PO BID REBECCA Last Admin: 12/19/18 08:45 Dose: 600 mg Hydralazine HCl (Apresoline) 10 mg IVPUSH Q4H PRN PRN Reason: Other Last Admin: 12/19/18 04:25 Dose: 10 mg Hydrochlorothiazide (Hydrochlorothiazide) 12.5 mg PO BEDTIME [facility] Last Admin: 12/18/18 19:59 Dose: 12.5 mg Morphine Sulfate (Morphine) 2 mg IVPUSH Q3H PRN PRN Reason: Pain (severe 7-10) Last Admin: 12/19/18 04:53 Dose: 2 mg Ondansetron HCl (Zofran) 4 mg IVPUSH Q4H PRN PRN Reason: Nausea/Vomiting Last Admin: 12/18/18 14:41 Dose: 4 mg Sodium Chloride (Saline Flush) 10 ml FLUSH ASDIRECTED PRN PRN Reason: Keep Vein Open Sodium Chloride (Saline Flush) 2.5 ml FLUSH ASDIRECTED PRN PRN Reason: Keep Vein Open Discontinued Medications Furosemide (Lasix) 40 mg IVPUSH NOW ONE Stop: 12/18/18 11:11 Last Admin: 12/18/18 12:01 Dose: 40 mg Hydralazine HCl (Apresoline) 10 mg IVPUSH ONETIME ONE Stop: 12/18/18 03:08 Last Admin: 12/18/18 03:14 Dose: 10 mg Levofloxacin/Dextrose 750 mg/ (Premix) 150 mls @ 100 mls/hr IV ONETIME ONE Stop: 12/18/18 06:32 Last Admin: 12/18/18 05:48 Dose: Not Given Sodium Chloride (Normal Saline) 1,000 mls @ 125 mls/hr IV ASDIRECTED REBECCA Last Admin: 12/18/18 05:46 Dose: 125 mls/hr Azithromycin 500 mg/ Sodium (Chloride) 250 mls @ 250 mls/hr IV Q24H REBECCA Ceftriaxone Sodium 1 gm/ (Sodium Chloride) 50 mls @ 100 mls/hr IV Q24H REBECCA Iopamidol (Isovue Multipack-370 (76%)) 50 ml IVPUSH ONETIME STA Stop: 12/19/18 10:26 Last Admin: 12/19/18 10:26 Dose: 50 ml
[2018-12-19] MEDS: Hydrochlorothiazide 12.5 MG Cap PO SCH (16:07)
== END 2018-12-19 16:10 | disposition home or self-care (01) ==
LOC: MW.ED 02:53 → MW.MS 05:22
PROVIDERS: ADMIT Internal Medicine; ATTEND Internal Medicine
DX: R07.81 Pleurodynia (principal); R91.1 Solitary pulmonary nodule; I10 Essential (primary) hypertension; Z88.5 Allergy status to narcotic agent; Z79.899 Other long term (current) drug therapy
CPT/HCPCS: 36415; 71045; 71275; 80048; 80053; 81001; 84484; 85025; 85610; 87804; 93005; 96361; 96374; 99285; A9270; J0360; J1940; J2270; J2405; J7040; Q9967; 96375; 96376; G0378; J7620-GY

== ENCOUNTER 2018-12-23 11:15 | Emergency (ER) | payer SELFPAY ==
--- NOTE | 2018-12-23 11:21 | EDM.PDOC ---
ED HPI GENERAL MEDICAL PROBLEM - General Chief Complaint: Respiratory Problem Stated Complaint: SOB/TINGLING RT SIDE Time Seen by Provider: 12/23/18 11:21 Source of Information: Reports: Patient - History of Present Illness INITIAL COMMENTS - FREE TEXT/NARRATIVE: HISTORY AND PHYSICAL: History of present illness: [Patient presents with hyperventilation and shortness of breath sensation and contraction of finger/hand wrist She complains of vague chest pains are outside of hyperventilation does not to appear in any pain distress as far as the chest pain she does not have any focal area of pain she has trouble describing it does not radiate arm neck or jaw no associated diaphoresis my hands and fingers are contracted ] I did provide Solu-Medrol and DuoNeb which did not provide any benefit , followed by Ativan which is completely alleviated symptoms and blood pressure is now at baseline 140/90 patient is resting very comfortably Noted she was in on Thursday with complete workup at that time as well including a CTA chest admission for observation she was discharged on lisinopril for blood pressure she states she is taking this medication She does know/her does note that they're under a lot of stress over the last week due to her 4 adult children and grandchildren not go into detail what the exact stressor is Post Ativan the patient has no fever nausea vomiting diarrhea constipation chest pain shortness breath headache dizziness palpitation no bowel or urine symptoms She notes that Review of systems: As per history of present illness and below otherwise all systems reviewed and negative. Past medical history: As per history of present illness and as reviewed below otherwise noncontributory. Surgical history: As per history of present illness and as reviewed below otherwise noncontributory. Social history: No reported history of drug or alcohol abuse. Family history: As per history of present illness and as reviewed below otherwise noncontributory. Physical exam: HEENT: Atraumatic, normocephalic, pupils reactive, negative for conjunctival pallor or scleral icterus, mucous membranes moist, throat clear, neck supple, nontender, trachea midline. Lungs: Clear to auscultation, breath sounds equal bilaterally, chest nontender. Heart: S1S2, regular, negative for clicks, rubs, or JVD. Abdomen: Soft, nondistended, nontender. Negative for masses or hepatosplenomegaly. Negative for costovertebral tenderness. Pelvis: Stable nontender. Genitourinary: Deferred. Rectal: Deferred. Extremities: Atraumatic, negative for cords or calf pain. Neurovascular unremarkable. Neuro: Awake, alert, oriented. Cranial nerves II through XII unremarkable. Cerebellum unremarkable. Motor and sensory unremarkable throughout. Exam nonfocal. Diagnostics: [CBC CMP UA troponin d-dimer EKG Chest 1 view ] Therapeutics: [ DuoNeb Solu-Medrol Normal saline Ativan 1 mg IV Ativan 0.5 by mouth twice a day #10 no refillBe used as needed Follow-up with primary care consider baseline medication ] Impression: [ anxiety/panic Chronic history of baseline] Definitive disposition and diagnosis as appropriate pending reevaluation and review of above. 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 ankle surgery Social & Family History - Family History Family Medical History: Noncontributory - Caffeine Use Caffeine Use: Reports: Soda ED ROS GENERAL - Review of Systems Review Of Systems: See Below ED EXAM, GENERAL - Physical Exam Exam: See Below Course - Vital Signs Last Recorded V/S: Last Vital Signs Temp 99.7 F 12/23/18 11:26 Pulse 95 12/23/18 11:26 Resp 28 H 12/23/18 11:26 BP 197/105 H 12/23/18 11:26 Pulse Ox 100 12/23/18 11:26 - Orders/Labs/Meds Orders: Active Orders 24 hr Category Date Time Status EKG Documentation Completion [RC] STAT Care 12/23/18 11:22 Active RT Aerosol Therapy [RC] ASDIRECTED Care 12/23/18 11:22 Active HCG QUALITATIVE,URINE [URCHEM] Stat Lab 12/23/18 11:23 Ordered UA RFX SEAN AND CULT IF INDIC [URIN] Stat Lab 12/23/18 11:22 Ordered Labs: Laboratory Tests 12/23/18 12/23/18 12/23/18 Range/Units 11:32 11:32 11:32 WBC 9.95 (4.0-11.0) K/uL RBC 4.10 L (4.30-5.90) M/uL Hgb 12.1 (12.0-16.0) g/dL Hct 37.1 (36.0-46.0) % MCV 90.5 (80.0-98.0) fL MCH 29.5 (27.0-32.0) pg MCHC 32.6 (31.0-37.0) g/dL RDW Std Deviation 55.6 (28.0-62.0) fl RDW Coeff of Raissa 17 H (11.0-15.0) % Plt Count 268 (150-400) K/uL MPV 10.80 (7.40-12.00) fL Neut % (Auto) 81.5 H (48.0-80.0) % Lymph % (Auto) 9.4 L (16.0-40.0) % [place] % (Auto) 8.2 (0.0-15.0) % Eos % (Auto) 0.4 (0.0-7.0) % Baso % (Auto) 0.5 (0.0-1.5) % Neut # (Auto) 8.1 H (1.4-5.7) K/uL Lymph # (Auto) 0.9 (0.6-2.4) K/uL [place] # (Auto) 0.8 (0.0-0.8) K/uL Eos # (Auto) 0.0 (0.0-0.7) K/uL Baso # (Auto) 0.1 (0.0-0.1) K/uL Nucleated RBC % 0.0 /100WBC Nucleated RBCs # 0 K/uL D-Dimer, Quantitative 0.44 (0.0-0.50) mg/L FEU Sodium 139 (136-145) mmol/L Potassium 3.6 (3.5-5.1) mmol/L Chloride 103 (98-107) mmol/L Carbon Dioxide 23.8 (21.0-32.0) mmol/L BUN 10 (7.0-18.0) mg/dL Creatinine 0.9 (0.6-1.0) mg/dL Est Cr Clr Drug Dosing 83.56 mL/min Estimated GFR (MDRD) > 60.0 ml/min Glucose 106 (74-106) mg/dL Calcium 9.0 (8.5-10.1) mg/dL Total Bilirubin 0.6 (0.2-1.0) mg/dL AST 16 (15-37) IU/L ALT 17 (14-63) IU/L Alkaline Phosphatase 86 (46-116) U/L Troponin I < 0.050 (0.000-0.056) ng/mL Total Protein 8.1 (6.4-8.2) g/dL Albumin 3.0 L (3.4-5.0) g/dL Globulin 5.1 H (2.6-4.0) g/dL Albumin/Globulin Ratio 0.6 L (0.9-1.6) Meds: Medications Discontinued Medications Generic Name Dose Route Start Last Admin Trade Name Freq PRN Reason Stop Dose Admin Albuterol/Ipratropium 3 ml 12/23/18 11:22 12/23/18 11:40 Duoneb 3.0-0.5 Mg/3 Ml NEB 12/23/18 11:23 3 ml ONETIME ONE Administration Sodium Chloride 1,000 mls @ 999 mls/hr 12/23/18 11:22 12/23/18 11:38 Normal Saline IV 12/23/18 12:22 999 mls/hr STAT ONE Administration Lorazepam 1 mg 12/23/18 11:48 12/23/18 11:55 Ativan IVPUSH 12/23/18 11:49 1 mg ONETIME ONE Administration Methylprednisolone Sodium Succinate 125 mg 12/23/18 11:22 12/23/18 11:38 Solu-Medrol IVPUSH 12/23/18 11:23 125 mg ONETIME ONE Administration Departure - Departure Time of Disposition: 12:51 Disposition: Home, Self-Care 01 Condition: Good Clinical Impression: Anxiety - Discharge Information Referrals: PCP,Unknown [Primary Care Provider] - Forms: ED Department Discharge Additional Instructions: The following information is given to patients seen in the emergency department who are being discharged to home. This information is to outline your options for follow-up care. We provide all patients seen in our emergency department with a follow-up referral. The need for follow-up, as well as the timing and circumstances, are variable depending upon the specifics of your emergency department visit. If you don't have a primary care physician on staff, we will provide you with a referral. We always advise you to contact your personal physician following an emergency department visit to inform them of the circumstance of the visit and for follow-up with them and/or the need for any referrals to a consulting specialist. The emergency department will also refer you to a specialist when appropriate. This referral assures that you have the opportunity for follow-up care with a specialist. All of these measure are taken in an effort to provide you with optimal care, which includes your follow-up. Under all circumstances we always encourage you to contact your private physician who remains a resource for coordinating your care. When calling for follow-up care, please make the office aware that this follow-up is from your recent emergency room visit. If for any reason you are refused follow-up, please contact the [facility] emergency department at and asked to speak to the emergency department charge nurse. - My Orders Last 24 Hours: My Active Orders 12/23/18 11:22 EKG Documentation Completion [RC] STAT RT Aerosol Therapy [RC] ASDIRECTED UA RFX SEAN AND CULT IF INDIC [URIN] Stat 12/23/18 11:23 HCG QUALITATIVE,URINE [URCHEM] Stat - Assessment/Plan Last 24 Hours: My Active Orders 12/23/18 11:22 EKG Documentation Completion [RC] STAT RT Aerosol Therapy [RC] ASDIRECTED UA RFX SEAN AND CULT IF INDIC [URIN] Stat 12/23/18 11:23 HCG QUALITATIVE,URINE [URCHEM] Stat
[2018-12-23] MEDS ORDERED: methylPREDNISolone Sodium Succinate 125 MG/2 ML SDV IVPUSH ONE (11:22)
[2018-12-23] MEDS ORDERED: Albuterol/Ipratropium 3.0-0.5 MG/3 ML Neb Soln NEB ONE (11:22)
[2018-12-23] MEDS ORDERED: Sodium Chloride 0.9% 1,000 ML IV ONE (11:22)
[2018-12-23] MEDS ORDERED: LORazepam 2 MG/ML SDV IVPUSH ONE (11:48)
[2018-12-23 12:13] LABS: CHLORIDE,CL 103 mmol/L (98-107); SODIUM,NA 139 mmol/L (136-145)
--- NOTE | 2018-12-23 12:24 | CR ---
EXAMINATION: Portable chest radiograph. HISTORY: Shortness of breath. FINDINGS: The trachea is midline. The cardiomediastinal silhouette is within normal limits. No pulmonary infiltrates, effusions or pneumothorax. Osseous structures appear unremarkable. IMPRESSION: No acute cardiopulmonary process.
== END 2018-12-23 13:03 | disposition home or self-care (01) ==
LOC: MW.ED 11:15
DX: F41.0 Panic disorder [episodic paroxysmal anxiety] (principal); I10 Essential (primary) hypertension; Z88.5 Allergy status to narcotic agent; Z79.899 Other long term (current) drug therapy
CPT/HCPCS: 36415; 71045; 80053; 84484; 85025; 85379; 93005; 94640; 96361; 96374; 96375; 99285; J2060; J2930; J7040; 99283; J7620-GY

== ENCOUNTER 2019-04-24 12:54 | Observation (INO) | payer BC, OTHER ==
[2019-04-24] MEDS ORDERED: Ondansetron 4 MG/2 ML SDV IVPUSH ONE (13:10)
[2019-04-24] MEDS ORDERED: Sodium Chloride 0.9% 1,000 ML IV ONE ×2 (13:10→14:23)
--- NOTE | 2019-04-24 13:15 | EDM.PDOC ---
ED HPI GENERAL MEDICAL PROBLEM - General Chief Complaint: Gastrointestinal Problem Stated Complaint: UNABLE TO INTAKE FOOD Time Seen by Provider: 04/24/19 13:11 Source of Information: Reports: Patient History Limitations: Reports: No Limitations - History of Present Illness INITIAL COMMENTS - FREE TEXT/NARRATIVE: HISTORY AND PHYSICAL: History of present illness: Patient is a 49-year-old female who presents to the emergency room today with a week long history of nausea, vomiting and diarrhea. She states last week she had some [employer] and shortly after had developed these symptoms. She thought she had food poisoning but it has not resolved over the past week. No one else in the home has been sick. States she has been vomiting after every oral intake. Has been having 5-8 loose stools per day. Patient denies any fever , chills, headache, change in vision, syncope or near syncope. Denies any chest pain, back pain, shortness of breath or cough. Denies any abdominal pain, constipation or dysuria. Has not noted any blood in urine or stool. Patient has been eating and drinking appropriately. Review of systems: As per history of present illness and below otherwise all systems reviewed and negative. Past medical history: As per history of present illness and as reviewed below otherwise noncontributory. Surgical history: As per history of present illness and as reviewed below otherwise noncontributory. Social history: See social history for further information Family history: As per history of present illness and as reviewed below otherwise noncontributory. Physical exam: General: Well-developed and well-nourished 49-year-old female. Alert and oriented. Nontoxic appearing and in no acute distress. HEENT: Atraumatic, normocephalic, pupils equal and reactive bilaterally, negative for conjunctival pallor or scleral icterus, mucous membranes dry, throat clear, neck supple, nontender, trachea midline. No drooling or trismus noted. No meningeal signs. No hot potato voice noted. Lungs: Clear to auscultation, breath sounds equal bilaterally, chest nontender. Heart: S1S2, regular rate and rhythm without overt murmur Abdomen: Soft, nondistended, nontender. Negative for masses or hepatosplenomegaly. Negative for costovertebral tenderness. Skin: Intact, warm, dry. No lesions or rashes noted. Extremities: Atraumatic, moves all extremities per self without difficulty or deficits. Neurovascular unremarkable. Neuro: Awake, alert, oriented. Cranial nerves II through XII unremarkable. Cerebellum unremarkable. Motor and sensory unremarkable throughout. Exam nonfocal. Notes: Patient's physical examination is within normal limits. She denies any abdominal pain or tenderness with palpation. She is agreeable to routine lab work along with IV fluids and Zofran. Patient reports she feels less nausea after the fluids and the IV zofran; but has a "twisting pressure" to her mid abdomen. Denies any abdominal pain. Will Try a GI cocktail for relief. VSS. Lipase is elevated; some blood noted in urine. When spoke with patient about lab results. She now states she is a daily drinker, drinking 2-3 beers per day. Denies any hard alcohol use. Labs added - patient is aware of likely admission and is agreeable to plan of care. CT shows an appearance favoring pancreatitis in the head with surrounding small reactive lymph nodes. Dr De was consulted on this case. He is agreeable to admitting this patient for observation. Diagnostics: CBC, CMP, lipase, UA, stool studies, CT abdomen/pelvis, Troponin, CPK Therapeutics: IV fluid, Zofran Impression: Pancreatitis Anemia, unspecified Plan: Observation admission to med/surg Definitive disposition and diagnosis as appropriate pending reevaluation and review of above. 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 ankle surgery Social & Family History - Family History Family Medical History: Noncontributory - Caffeine Use Caffeine Use: Reports: Soda ED ROS GENERAL - Review of Systems Review Of Systems: ROS reveals no pertinent complaints other than HPI. ED EXAM, GI/ABD - Physical Exam Exam: See Below (See dictation) Course - Vital Signs Last Recorded V/S: Last Vital Signs Temp 98.1 F 04/24/19 13:05 Pulse 84 04/24/19 15:20 Resp 18 04/24/19 15:20 BP 159/99 H 04/24/19 15:20 Pulse Ox 99 04/24/19 15:20 - Orders/Labs/Meds Orders: Active Orders 24 hr Category Date Time Status Admission Status [Patient Status] [ADT] Stat ADT 04/24/19 14:53 Active Oxygen Therapy [RC] PRN Care 04/24/19 14:59 Active Up ad Lora [RC] ASDIRECTED Care 04/24/19 14:59 Active VTE/DVT Education [RC] PER UNIT ROUTINE Care 04/24/19 14:59 Active Vital Signs [RC] Q4H Care 04/24/19 14:59 Active Nothing per Oral Now Diet [DIET] Diet 04/24/19 Dinner Active CBC WITH AUTO DIFF [HEME] AM Lab 04/25/19 05:11 Ordered CDIFF TOX A+B [OP] Stat Lab 04/24/19 13:10 Ordered COMPREHENSIVE METABOLIC PN,CMP [CHEM] AM Lab 04/25/19 05:11 Ordered CULTURE STOOL + CAMPY+SHIGATOX [RM] Stat Lab 04/24/19 13:10 Ordered OVA & PARASITES BY IMMUNOASSAY [MREF] Stat Lab 04/24/19 13:10 Ordered Acetaminophen [Tylenol] Med 04/24/19 14:59 Active 650 mg PO Q4H PRN Docusate Sodium [Colace] Med 04/24/19 14:59 Active 100 mg PO BID PRN Enoxaparin [Lovenox] Med 04/24/19 15:00 Active 30 mg SUBCUT Q24H HYDROmorphone [Dilaudid] Med 04/24/19 14:59 Active 0.5 mg IVPUSH Q2H PRN Lisinopril [Prinivil] Med 04/25/19 09:00 Active 10 mg PO DAILY Ondansetron [Zofran] Med 04/24/19 14:59 Active 4 mg IVPUSH Q4H PRN Sodium Chloride 0.9% [Normal Saline] 1,000 ml Med 04/24/19 15:00 Active IV ASDIRECTED Sodium Chloride 0.9% [Normal Saline] 1,000 ml Med 04/24/19 14:23 Active IV STAT oxyCODONE Med 04/24/19 14:59 Active 5 mg PO Q4H PRN Resuscitation Status Routine Resus Stat 04/24/19 14:59 Ordered Medication Orders Acetaminophen (Tylenol) 650 mg PO Q4H PRN PRN Reason: Pain (Mild 1-3)/fever Docusate Sodium (Colace) 100 mg PO BID PRN PRN Reason: Constipation Enoxaparin Sodium (Lovenox) 30 mg SUBCUT Q24H REBECCA Hydromorphone HCl (Dilaudid) 0.5 mg IVPUSH Q2H PRN PRN Reason: Pain (severe 7-10) Sodium Chloride (Normal Saline) 1,000 mls @ 150 mls/hr IV STAT ONE Stop: 04/24/19 21:02 Last Admin: 04/24/19 15:14 Dose: 150 mls/hr Sodium Chloride (Normal Saline) 1,000 mls @ 125 mls/hr IV ASDIRECTED REBECCA Lisinopril (Prinivil) 10 mg PO DAILY REBECCA Ondansetron HCl (Zofran) 4 mg IVPUSH Q4H PRN PRN Reason: Nausea/Vomiting Oxycodone HCl (Oxycodone) 5 mg PO Q4H PRN PRN Reason: Pain (moderate 4-6) Labs: Laboratory Tests 04/24/19 04/24/19 04/24/19 Range/Units 13:20 13:20 13:20 WBC 7.74 (4.0-11.0) K/uL RBC 3.81 L (4.30-5.90) M/uL Hgb 10.8 L (12.0-16.0) g/dL Hct 34.0 L (36.0-46.0) % MCV 89.2 (80.0-98.0) fL MCH 28.3 (27.0-32.0) pg MCHC 31.8 (31.0-37.0) g/dL RDW Std Deviation 54.8 (28.0-62.0) fl RDW Coeff of Raissa 17 H (11.0-15.0) % Plt Count 352 (150-400) K/uL MPV 10.10 (7.40-12.00) fL Neut % (Auto) 88.7 H (48.0-80.0) % Lymph % (Auto) 6.6 L (16.0-40.0) % [place] % (Auto) 4.1 (0.0-15.0) % Eos % (Auto) 0.3 (0.0-7.0) % Baso % (Auto) 0.3 (0.0-1.5) % Neut # (Auto) 6.9 H (1.4-5.7) K/uL Lymph # (Auto) 0.5 L (0.6-2.4) K/uL [place] # (Auto) 0.3 (0.0-0.8) K/uL Eos # (Auto) 0.0 (0.0-0.7) K/uL Baso # (Auto) 0.0 (0.0-0.1) K/uL Nucleated RBC % 0.0 /100WBC Nucleated RBCs # 0 K/uL Sodium 137 (136-145) mmol/L Potassium 3.1 L (3.5-5.1) mmol/L Chloride 101 (98-107) mmol/L Carbon Dioxide 21.9 (21.0-32.0) mmol/L BUN 14 (7.0-18.0) mg/dL Creatinine 0.9 (0.6-1.0) mg/dL Est Cr Clr Drug Dosing 77.11 mL/min Estimated GFR (MDRD) > 60.0 ml/min Glucose 95 (74-106) mg/dL Calcium 8.7 (8.5-10.1) mg/dL Total Bilirubin 0.9 (0.2-1.0) mg/dL AST 14 L (15-37) IU/L ALT 17 (14-63) IU/L Alkaline Phosphatase 93 (46-116) U/L Creatine Kinase (26-308) U/L Troponin I (0.000-0.056) ng/mL Total Protein 8.3 H (6.4-8.2) g/dL Albumin 3.2 L (3.4-5.0) g/dL Globulin 5.1 H (2.6-4.0) g/dL Albumin/Globulin Ratio 0.6 L (0.9-1.6) Lipase 1230 H (73-393) U/L Urine Color YELLOW Urine Appearance CLEAR Urine pH 5.5 (5.0-8.0) Ur Specific [place] 1.020 (1.001-1.035) Urine Protein NEGATIVE (NEGATIVE) mg/dL Urine Glucose (UA) NEGATIVE (NEGATIVE) mg/dL Urine Ketones NEGATIVE (NEGATIVE) mg/dL Urine Occult Blood LARGE H (NEGATIVE) Urine Nitrite NEGATIVE (NEGATIVE) Urine Bilirubin NEGATIVE (NEGATIVE) Urine Urobilinogen 0.2 (<2.0) EU/dL Ur Leukocyte Esterase NEGATIVE (NEGATIVE) Urine RBC 0-3 (0-2/HPF) Urine WBC 0-2 (0-5/HPF) Ur Epithelial Cells OCCASIONAL (NONE-FEW) Urine Bacteria RARE (NEGATIVE) 04/24/19 Range/Units 13:20 WBC (4.0-11.0) K/uL RBC (4.30-5.90) M/uL Hgb (12.0-16.0) g/dL Hct (36.0-46.0) % MCV (80.0-98.0) fL MCH (27.0-32.0) pg MCHC (31.0-37.0) g/dL RDW Std Deviation (28.0-62.0) fl RDW Coeff of Raissa (11.0-15.0) % Plt Count (150-400) K/uL MPV (7.40-12.00) fL Neut % (Auto) (48.0-80.0) % Lymph % (Auto) (16.0-40.0) % [place] % (Auto) (0.0-15.0) % Eos % (Auto) (0.0-7.0) % Baso % (Auto) (0.0-1.5) % Neut # (Auto) (1.4-5.7) K/uL Lymph # (Auto) (0.6-2.4) K/uL [place] # (Auto) (0.0-0.8) K/uL Eos # (Auto) (0.0-0.7) K/uL Baso # (Auto) (0.0-0.1) K/uL Nucleated RBC % /100WBC Nucleated RBCs # K/uL Sodium (136-145) mmol/L Potassium (3.5-5.1) mmol/L Chloride (98-107) mmol/L Carbon Dioxide (21.0-32.0) mmol/L BUN (7.0-18.0) mg/dL Creatinine (0.6-1.0) mg/dL Est Cr Clr Drug Dosing mL/min Estimated GFR (MDRD) ml/min Glucose (74-106) mg/dL Calcium (8.5-10.1) mg/dL Total Bilirubin (0.2-1.0) mg/dL AST (15-37) IU/L ALT (14-63) IU/L Alkaline Phosphatase (46-116) U/L Creatine Kinase 56 (26-308) U/L Troponin I < 0.050 (0.000-0.056) ng/mL Total Protein (6.4-8.2) g/dL Albumin (3.4-5.0) g/dL Globulin (2.6-4.0) g/dL Albumin/Globulin Ratio (0.9-1.6) Lipase (73-393) U/L Urine Color Urine Appearance Urine pH (5.0-8.0) Ur Specific [place] (1.001-1.035) Urine Protein (NEGATIVE) mg/dL Urine Glucose (UA) (NEGATIVE) mg/dL Urine Ketones (NEGATIVE) mg/dL Urine Occult Blood (NEGATIVE) Urine Nitrite (NEGATIVE) Urine Bilirubin (NEGATIVE) Urine Urobilinogen (<2.0) EU/dL Ur Leukocyte Esterase (NEGATIVE) Urine RBC (0-2/HPF) Urine WBC (0-5/HPF) Ur Epithelial Cells (NONE-FEW) Urine Bacteria (NEGATIVE) Meds: Medications Generic Name Dose Route Start Last Admin Trade Name Freq PRN Reason Stop Dose Admin Acetaminophen 650 mg 04/24/19 14:59 Tylenol PO Q4H PRN Pain (Mild 1-3)/fever Docusate Sodium 100 mg 04/24/19 14:59 Colace PO BID PRN Constipation Enoxaparin Sodium 30 mg 04/24/19 15:00 Lovenox SUBCUT Q24H REBECCA Hydromorphone HCl 0.5 mg 04/24/19 14:59 Dilaudid IVPUSH Q2H PRN Pain (severe 7-10) Sodium Chloride 1,000 mls @ 150 mls/hr 04/24/19 14:23 04/24/19 15:14 Normal Saline IV 04/24/19 21:02 150 mls/hr STAT ONE Administration Sodium Chloride 1,000 mls @ 125 mls/hr 04/24/19 15:00 Normal Saline IV ASDIRECTED REBECCA Lisinopril 10 mg 04/25/19 09:00 Prinivil PO DAILY REBECCA Ondansetron HCl 4 mg 04/24/19 14:59 Zofran IVPUSH Q4H PRN Nausea/Vomiting Oxycodone HCl 5 mg 04/24/19 14:59 Oxycodone PO Q4H PRN Pain (moderate 4-6) Discontinued Medications Generic Name Dose Route Start Last Admin Trade Name Freq PRN Reason Stop Dose Admin Al Hydroxide/Mg Hydroxide 15 0 ml 04/24/19 13:58 04/24/19 14:15 ml/ Metoclopramide HCl 5 mg/ PO 04/24/19 13:59 5 each Lidocaine HCl 5 ml ONETIME ONE Administration Sodium Chloride 1,000 mls @ 999 mls/hr 04/24/19 13:10 04/24/19 13:28 Normal Saline IV 04/24/19 14:10 999 mls/hr STAT ONE Administration Iopamidol 100 ml 04/24/19 14:59 04/24/19 14:59 Isovue Multipack-370 (76%) IVPUSH 04/24/19 15:00 100 ml ONETIME ONE Administration Ondansetron HCl 4 mg 04/24/19 13:10 04/24/19 13:29 Zofran IVPUSH 04/24/19 13:11 4 mg ONETIME ONE Administration Departure - Departure Time of Disposition: 15:46 Disposition: Home, Self-Care 01 Clinical Impression: Pancreatitis Qualifiers: Chronicity: acute Pancreatitis type: unspecified pancreatitis type Acute pancreatitis complication: unspecified Qualified Code(s): K85.90 - Acute pancreatitis without necrosis or infection, unspecified Anemia Qualifiers: Anemia type: unspecified type Qualified Code(s): D64.9 - Anemia, unspecified - Discharge Information - My Orders Last 24 Hours: My Active Orders 04/24/19 13:10 CDIFF TOX A+B [OP] Stat CULTURE STOOL + CAMPY+SHIGATOX [RM] Stat OVA & PARASITES BY IMMUNOASSAY [MREF] Stat 04/24/19 14:23 Sodium Chloride 0.9% [Normal Saline] 1,000 ml IV STAT 04/24/19 14:53 Admission Status [Patient Status] [ADT] Stat - Assessment/Plan Last 24 Hours: My Active Orders 04/24/19 13:10 CDIFF TOX A+B [OP] Stat CULTURE STOOL + CAMPY+SHIGATOX [RM] Stat OVA & PARASITES BY IMMUNOASSAY [MREF] Stat 04/24/19 14:23 Sodium Chloride 0.9% [Normal Saline] 1,000 ml IV STAT 04/24/19 14:53 Admission Status [Patient Status] [ADT] Stat
[2019-04-24 13:53] LABS: CHLORIDE,CL 101 mmol/L (98-107); SODIUM,NA 137 mmol/L (136-145)
[2019-04-24] MEDS ORDERED: Alum Hydrox/Mag Hydrox/Simeth 15 ML, Metoclopramide 5 MG, Lidocaine 2% 5 ML PO ONE ×3 (13:58)
[2019-04-24] MEDS ORDERED: Docusate Sodium 100 MG Cap PO PRN (14:59)
[2019-04-24] MEDS ORDERED: Ondansetron 4 MG/2 ML SDV IVPUSH PRN (14:59)
[2019-04-24] MEDS ORDERED: HYDROmorphone 1 MG/ML Syringe IVPUSH PRN (14:59)
[2019-04-24] MEDS ORDERED: Iopamidol 755 MG/ML 500 ML Multipack Bottle IVPUSH ONE (14:59)
[2019-04-24] MEDS ORDERED: Acetaminophen 325 MG Tab PO PRN (14:59)
--- NOTE | 2019-04-24 15:03 | PCM.HP ---
H&P History of Present Illness - General Date of Service: 04/24/19 Admit Problem/Dx: Admission Diagnosis/Problem Admission Diagnosis/Problem Pancreatitis, nausea and vomiting, diarrhea Source of Information: Patient History Limitations: Reports: No Limitations - History of Present Illness Initial Comments - Free Text/Narative: The patient's a 49-year-old lady who had presented to the emergency department primarily out of concern for, vomiting and diarrhea. The patient says that she had acute onset of her symptoms last week shortly after eating at a local taco shop. The patient reports that she has had multiple episodes of nausea or vomiting. The patient says that she's had 5-8 loose stools per day. The patient also says that she has had fever and cold feeling over the past week. The patient has denied any hematochezia or hematemesis. No chest pain. The patient has been in her usual state of health up until history of present illness and she only has been taking lisinopril for hypertension. The patient says that she has a history of drinking 2-3 beers per day. No previous gallbladder issues. Onset of Symptoms: Reports: Gradual Duration of Symptoms: Reports: Day(s): (7 days), Constant Location: Reports: Abdomen Quality: Reports: Ache, Throbbing Improves with: Reports: Rest. Denies: Eating Worsens with: Reports: Eating Associated Symptoms: Reports: Fever/Chills Headache Pain Score (Numeric/FACES): 9 - Related Data Allergies/Adverse Reactions: Allergies Allergy/AdvReac Type Severity Reaction Status Date / Time codeine Allergy Hives Verified 04/24/19 13:05 Home Medications: Home Meds Lisinopril [Prinivil] 10 mg PO DAILY #30 tablet 12/19/18 [Rx] Ondansetron [Zofran ODT] 4 mg PO Q6H PRN #10 tab.dis 04/24/19 [Rx] Past Medical History HEENT History: Reports: None Cardiovascular History: Reports: Hypertension Respiratory History: Reports: None Gastrointestinal History: Reports: None Genitourinary History: Reports: None [employer] History: Reports: Musculoskeletal History: Reports: None Neurological History: Reports: None Psychiatric History: Reports: None Endocrine/Metabolic History: Reports: None Hematologic History: Reports: None Immunologic History: Reports: None Oncologic (Cancer) History: Reports: None Dermatologic History: Reports: None - Infectious Disease History Infectious Disease History: Reports: None - Past Surgical History Musculoskeletal Surgical History: Reports: Other (See Below) Other Musculoskeletal Surgeries/Procedures:: back surgery. ankle surgery Social & Family History - Family History Family Medical History: Noncontributory - Tobacco Use Smoking Status *Q: Never Smoker Second Hand Smoke Exposure: No - Caffeine Use Caffeine Use: Reports: Soda - Recreational Drug Use Recreational Drug Use: No - Living Situation & Occupation Living situation: Reports: , with Spouse Occupation: Employed H&P Review of Systems - Review of Systems: Review Of Systems: See Below General: Reports: Fever, Chills, Weakness, Decreased Appetite HEENT: Reports: No Symptoms Pulmonary: Reports: No Symptoms Cardiovascular: Reports: No Symptoms Gastrointestinal: Reports: Abdominal Pain, Diarrhea, Nausea, Vomiting Genitourinary: Reports: No Symptoms Musculoskeletal: Reports: No Symptoms Skin: Reports: No Symptoms Psychiatric: Reports: No Symptoms Neurological: Reports: No Symptoms Hematologic/Lymphatic: Reports: No Symptoms Immunologic: Reports: No Symptoms Exam - Exam Exam: See Below - Vital Signs Vital Signs: Last Vital Signs Temp 36.7 C 04/24/19 13:05 Pulse 81 04/24/19 14:10 Resp 17 04/24/19 14:10 BP 137/92 H 04/24/19 14:10 Pulse Ox 98 04/24/19 14:10 Weight: 83 kg - Exam Quality Assessment: No: Supplemental Oxygen General: Alert, Oriented, Cooperative, Mild Distress HEENT: Conjunctiva Clear, EACs Clear, EOMI, Nares Patent, Pupils Equal, PERRLA. No: Mucosa Moist & Silvana (Dry) Neck: Supple, Trachea Midline Lungs: Clear to Auscultation, Normal Respiratory Effort Cardiovascular: Regular Rate, Regular Rhythm, Systolic Murmur (Grade 3/6) GI/Abdominal Exam: Soft, Non-Tender, No Distention. No: Normal Bowel Sounds ( Hyperactive), Guarding, Rigid, Rebound Back Exam: Normal Inspection, Full Range of Motion Extremities: Normal Inspection, No Pedal Edema Skin: Warm, Dry, Intact Neurological: Cranial Nerves Intact Neuro Extensive - Mental Status: Alert, Oriented x3, Normal Mood/Affect Psychiatric: Alert, Normal Affect, Normal Mood - Patient Data Lab Results Last 24 hrs: Laboratory Results - last 24 hr 04/24/19 04/24/1919 Range/Units 13:20 13:20 13:20 WBC 7.74 (4.0-11.0) K/uL RBC 3.81 L (4.30-5.90) M/uL Hgb 10.8 L (12.0-16.0) g/dL Hct 34.0 L (36.0-46.0) % MCV 89.2 (80.0-98.0) fL MCH 28.3 (27.0-32.0) pg MCHC 31.8 (31.0-37.0) g/dL RDW Std Deviation 54.8 (28.0-62.0) fl RDW Coeff of Raissa 17 H (11.0-15.0) % Plt Count 352 (150-400) K/uL MPV 10.10 (7.40-12.00) fL Neut % (Auto) 88.7 H (48.0-80.0) % Lymph % (Auto) 6.6 L (16.0-40.0) % [place] % (Auto) 4.1 (0.0-15.0) % Eos % (Auto) 0.3 (0.0-7.0) % Baso % (Auto) 0.3 (0.0-1.5) % Neut # (Auto) 6.9 H (1.4-5.7) K/uL Lymph # (Auto) 0.5 L (0.6-2.4) K/uL [place] # (Auto) 0.3 (0.0-0.8) K/uL Eos # (Auto) 0.0 (0.0-0.7) K/uL Baso # (Auto) 0.0 (0.0-0.1) K/uL Nucleated RBC % 0.0 /100WBC Nucleated RBCs # 0 K/uL Sodium 137 (136-145) mmol/L Potassium 3.1 L (3.5-5.1) mmol/L Chloride 101 (98-107) mmol/L Carbon Dioxide 21.9 (21.0-32.0) mmol/L BUN 14 (7.0-18.0) mg/dL Creatinine 0.9 (0.6-1.0) mg/dL Est Cr Clr Drug Dosing 77.11 mL/min Estimated GFR (MDRD) > 60.0 ml/min Glucose 95 (74-106) mg/dL Calcium 8.7 (8.5-10.1) mg/dL Total Bilirubin 0.9 (0.2-1.0) mg/dL AST 14 L (15-37) IU/L ALT 17 (14-63) IU/L Alkaline Phosphatase 93 (46-116) U/L Creatine Kinase (26-308) U/L Troponin I (0.000-0.056) ng/mL Total Protein 8.3 H (6.4-8.2) g/dL Albumin 3.2 L (3.4-5.0) g/dL Globulin 5.1 H (2.6-4.0) g/dL Albumin/Globulin Ratio 0.6 L (0.9-1.6) Lipase 1230 H (73-393) U/L Urine Color YELLOW Urine Appearance CLEAR Urine pH 5.5 (5.0-8.0) Ur Specific [place] 1.020 (1.001-1.035) Urine Protein NEGATIVE (NEGATIVE) mg/dL Urine Glucose (UA) NEGATIVE (NEGATIVE) mg/dL Urine Ketones NEGATIVE (NEGATIVE) mg/dL Urine Occult Blood LARGE H (NEGATIVE) Urine Nitrite NEGATIVE (NEGATIVE) Urine Bilirubin NEGATIVE (NEGATIVE) Urine Urobilinogen 0.2 (<2.0) EU/dL Ur Leukocyte Esterase NEGATIVE (NEGATIVE) Urine RBC 0-3 (0-2/HPF) Urine WBC 0-2 (0-5/HPF) Ur Epithelial Cells OCCASIONAL (NONE-FEW) Urine Bacteria RARE (NEGATIVE) 04/24/19 Range/Units 13:20 WBC (4.0-11.0) K/uL RBC (4.30-5.90) M/uL Hgb (12.0-16.0) g/dL Hct (36.0-46.0) % MCV (80.0-98.0) fL MCH (27.0-32.0) pg MCHC (31.0-37.0) g/dL RDW Std Deviation (28.0-62.0) fl RDW Coeff of Raissa (11.0-15.0) % Plt Count (150-400) K/uL MPV (7.40-12.00) fL Neut % (Auto) (48.0-80.0) % Lymph % (Auto) (16.0-40.0) % [place] % (Auto) (0.0-15.0) % Eos % (Auto) (0.0-7.0) % Baso % (Auto) (0.0-1.5) % Neut # (Auto) (1.4-5.7) K/uL Lymph # (Auto) (0.6-2.4) K/uL [place] # (Auto) (0.0-0.8) K/uL Eos # (Auto) (0.0-0.7) K/uL Baso # (Auto) (0.0-0.1) K/uL Nucleated RBC % /100WBC Nucleated RBCs # K/uL Sodium (136-145) mmol/L Potassium (3.5-5.1) mmol/L Chloride (98-107) mmol/L Carbon Dioxide (21.0-32.0) mmol/L BUN (7.0-18.0) mg/dL Creatinine (0.6-1.0) mg/dL Est Cr Clr Drug Dosing mL/min Estimated GFR (MDRD) ml/min Glucose (74-106) mg/dL Calcium (8.5-10.1) mg/dL Total Bilirubin (0.2-1.0) mg/dL AST (15-37) IU/L ALT (14-63) IU/L Alkaline Phosphatase (46-116) U/L Creatine Kinase 56 (26-308) U/L Troponin I < 0.050 (0.000-0.056) ng/mL Total Protein (6.4-8.2) g/dL Albumin (3.4-5.0) g/dL Globulin (2.6-4.0) g/dL Albumin/Globulin Ratio (0.9-1.6) Lipase (73-393) U/L Urine Color Urine Appearance Urine pH (5.0-8.0) Ur Specific [place] (1.001-1.035) Urine Protein (NEGATIVE) mg/dL Urine Glucose (UA) (NEGATIVE) mg/dL Urine Ketones (NEGATIVE) mg/dL Urine Occult Blood (NEGATIVE) Urine Nitrite (NEGATIVE) Urine Bilirubin (NEGATIVE) Urine Urobilinogen (<2.0) EU/dL Ur Leukocyte Esterase (NEGATIVE) Urine RBC (0-2/HPF) Urine WBC (0-5/HPF) Ur Epithelial Cells (NONE-FEW) Urine Bacteria (NEGATIVE) Result Diagrams: 04/24/19 13:20 04/24/19 13:20 - Problem List (1) Pancreatitis SNOMED Code(s): 02815369 ICD Code: K85.90 - ACUTE PANCREATITIS WITHOUT NECROSIS OR INFECTION, UNSP Status: Acute Current Visit: Yes Qualifiers: Chronicity: acute Pancreatitis type: unspecified pancreatitis type Acute pancreatitis complication: unspecified Qualified Code(s): K85.90 - Acute pancreatitis without necrosis or infection, unspecified (2) Intractable nausea and vomiting SNOMED Code(s): 409899477 ICD Code: R11.2 - NAUSEA WITH VOMITING, UNSPECIFIED Status: Acute Priority: High Current Visit: Yes Qualifiers: Vomiting type: unspecified Qualified Code(s): R11.2 - Nausea with vomiting , unspecified (3) Diarrhea SNOMED Code(s): 61790232 ICD Code: R19.7 - DIARRHEA, UNSPECIFIED Status: Acute Priority: High Current Visit: Yes Qualifiers: Diarrhea type: presumed infectious Qualified Code(s): R19.7 - Diarrhea, unspecified Problem List Initiated/Reviewed/Updated: Yes Orders Last 24hrs: Active Orders 24 hr Category Date Time Status Admission Status [Patient Status] [ADT] Stat ADT 04/24/19 14:53 Active Oxygen Therapy [RC] PRN Care 04/24/19 14:59 Ordered Up ad Lora [RC] ASDIRECTED Care 04/24/19 14:59 Ordered VTE/DVT Education [RC] PER UNIT ROUTINE Care 04/24/19 14:59 Ordered Vital Signs [RC] Q4H Care 04/24/19 14:59 Ordered Nothing per Oral Now Diet [DIET] Diet 04/24/19 Dinner Ordered Abdomen Pelvis w Cont [CT] Stat Exams 04/24/19 14:13 Ordered CBC WITH AUTO DIFF [HEME] AM Lab 04/25/19 05:11 Ordered CDIFF TOX A+B [OP] Stat Lab 04/24/19 13:10 Ordered COMPREHENSIVE METABOLIC PN,CMP [CHEM] AM Lab 04/25/19 05:11 Ordered CULTURE STOOL + CAMPY+SHIGATOX [RM] Stat Lab 04/24/19 13:10 Ordered OVA & PARASITES BY IMMUNOASSAY [MREF] Stat Lab 04/24/19 13:10 Ordered Acetaminophen [Tylenol] Med 04/24/19 14:59 Ordered 650 mg PO Q4H PRN Docusate Sodium [Colace] Med 04/24/19 14:59 Ordered 100 mg PO BID PRN Enoxaparin [Lovenox] Med 04/24/19 15:00 Ordered 30 mg SUBCUT Q24H HYDROmorphone [Dilaudid] Med 04/24/19 14:59 Ordered 0.5 mg IVPUSH Q2H PRN Lisinopril [Prinivil] Med 04/25/19 09:00 Ordered 10 mg PO DAILY Ondansetron [Zofran] Med 04/24/19 14:59 Ordered 4 mg IVPUSH Q4H PRN Sodium Chloride 0.9% @ 125 MLS/HR (1000ml) Med 04/24/19 15:00 Ordered Sodium Chloride 0.9% [Normal Saline] 1,000 ml IV ASDIRECTED Sodium Chloride 0.9% [Normal Saline] 1,000 ml Med 04/24/19 14:23 Active IV STAT oxyCODONE Med 04/24/19 14:59 Ordered 5 mg PO Q4H PRN Resuscitation Status Routine Resus Stat 04/24/19 14:59 Ordered Medication Orders Sodium Chloride (Normal Saline) 1,000 mls @ 150 mls/hr IV STAT ONE Stop: 04/24/19 21:02 Lisinopril (Prinivil) 10 mg PO DAILY REBECCA Assessment/Plan Comment:: The patient is a 49-year-old lady who is presented to the emergency department and admitted out of concern for pancreatitis as well as nausea vomiting diarrhea. The patient does have an elevation of her lipase at 1230 and this may be from her nausea and vomiting. Currently awaiting radiology reading of CT scan of her abdomen. The patient also has been noted to have a large amount of occult blood in her urine. No source of infection. The patient will be kept on IV normal saline at 125 mL per hour. The patient's nausea and vomiting controlled with the use of Zofran. I've ordered pain control with the use of narcotics. This will be monitored very closely as the patient does have a history of hives to codeine. The patient will also be kept nothing by mouth. Repeat laboratory studies have been ordered. I've ordered DVT prophylaxis with the use of Lovenox. She also has been encouraged to ambulate. The patient also have an ultrasound of right upper quadrant to help exclude gallstone pancreatitis. Stool studies are currently pending. The patient's antibiotic usage will be adjusted depending upon culture results.
--- NOTE | 2019-04-24 15:43 | CT ---
INDICATION: Vomiting and diarrhea for 1 week. TECHNIQUE: 100 mL Isovue-370 IV contrast. FINDINGS: Small sliding hiatus hernia. Edematous fullness of the ingesting pancreatic head obscuring the pancreatic duct which is mildly dilated proximal in the body and tail. Common bile duct is not dilated with no filling defect. Gallbladder appears normal. Strandy inflammation below the pancreas in the greater sac region with a number of small reactive appearing enhancing lymph nodes. Small fat filled umbilical hernia. Patent portal vein and splenic vein. Hazy indistinct inflammatory attenuation around the superior mesenteric vein which is patent as it enters the portal vein. A few diverticula of the colon. No free fluid in the peritoneum. Lumbar fusion hardware. IMPRESSION: Appearance favoring pancreatitis in the head with surrounding small reactive lymph nodes. Correlation with laboratory studies recommended. No definitive mass however followup contrast CT or MRI is recommended to ensure no underlying mass. Please note that all CT scans at this facility use dose modulation, iterative reconstruction, and/or weight-based dosing when appropriate to reduce radiation dose to as low as reasonably achievable. Dictated by Kb Scott MD @ Apr 24 2019 3:35PM Signed by Dr. Kb Scott @ Apr 24 2019 3:41PM
[2019-04-24] MEDS: Enoxaparin 30 MG/0.3 ML Syringe SUBCUT SCH (16:27)
[2019-04-24] MEDS: Sodium Chloride 0.9% 1,000 ML IV SCH (23:56)
[2019-04-25 06:38] LABS: CHLORIDE,CL 106 mmol/L (98-107); SODIUM,NA 140 mmol/L (136-145)
[2019-04-25] MEDS: Sodium Chloride 0.9% 1,000 ML IV SCH ×2 (08:01→21:03)
[2019-04-25] MEDS: Pantoprazole 40 MG in Sodium Chloride 0.9% 10 ML IVPUSH SCH (08:41)
[2019-04-25] MEDS ORDERED: Sodium Chloride 0.9% with KCl 1,000 ML IV SCH (09:00)
[2019-04-25] MEDS ORDERED: Lisinopril 10 MG Tab PO SCH (09:00)
[2019-04-25] MEDS: Vancomycin 25 MG/ML Compounding Kit PO SCH ×3 (11:41→23:34)
--- NOTE | 2019-04-25 11:45 | PCM.PN ---
<Justine Dias M - Last Filed: 04/25/19 11:46> - General Info Date of Service: 04/25/19 Admission Dx/Problem (Free Text): Admission Diagnosis/Problem Admission Diagnosis/Problem Pancreatitis, nausea and vomiting, diarrhea Subjective Update: Feeling improved today, pain is nearly zero. eager to try liquids. Nausea better. No stools. No chest pain or SOB. Functional Status: Reports: Pain Controlled, Ambulating, Urinating - Review of Systems General: Reports: No Symptoms. Denies: Weakness, Fatigue, Malaise Pulmonary: Reports: No Symptoms. Denies: Shortness of Breath Cardiovascular: Reports: No Symptoms. Denies: Chest Pain Gastrointestinal: Reports: No Symptoms. Denies: Abdominal Pain, Nausea, Vomiting Genitourinary: Reports: No Symptoms Neurological: Reports: No Symptoms Psychiatric: Reports: No Symptoms - Patient Data Vitals - Most Recent: Last Vital Signs Temp 98.1 F 04/25/19 11:42 Pulse 70 04/25/19 11:42 Resp 16 04/25/19 11:42 BP 139/86 04/25/19 11:42 Pulse Ox 99 04/25/19 11:42 Weight - Most Recent: 83 kg I&O - Last 24 Hours: Intake & Output 04/24/19 04/25/19 04/25/19 22:59 06:59 14:59 Intake Total 1475 Output Total 1100 Balance 375 Lab Results Last 24 Hours: Laboratory Results - last 24 hr 04/24/19 04/24/19 04/24/19 Range/Units 13:20 13:20 13:20 WBC 7.74 (4.0-11.0) K/uL RBC 3.81 L (4.30-5.90) M/uL Hgb 10.8 L (12.0-16.0) g/dL Hct 34.0 L (36.0-46.0) % MCV 89.2 (80.0-98.0) fL MCH 28.3 (27.0-32.0) pg MCHC 31.8 (31.0-37.0) g/dL RDW Std Deviation 54.8 (28.0-62.0) fl RDW Coeff of Raissa 17 H (11.0-15.0) % Plt Count 352 (150-400) K/uL MPV 10.10 (7.40-12.00) fL Neut % (Auto) 88.7 H (48.0-80.0) % Lymph % (Auto) 6.6 L (16.0-40.0) % [place] % (Auto) 4.1 (0.0-15.0) % Eos % (Auto) 0.3 (0.0-7.0) % Baso % (Auto) 0.3 (0.0-1.5) % Neut # (Auto) 6.9 H (1.4-5.7) K/uL Lymph # (Auto) 0.5 L (0.6-2.4) K/uL [place] # (Auto) 0.3 (0.0-0.8) K/uL Eos # (Auto) 0.0 (0.0-0.7) K/uL Baso # (Auto) 0.0 (0.0-0.1) K/uL Nucleated RBC % 0.0 /100WBC Nucleated RBCs # 0 K/uL Sodium 137 (136-145) mmol/L Potassium 3.1 L (3.5-5.1) mmol/L Chloride 101 (98-107) mmol/L Carbon Dioxide 21.9 (21.0-32.0) mmol/L BUN 14 (7.0-18.0) mg/dL Creatinine 0.9 (0.6-1.0) mg/dL Est Cr Clr Drug Dosing 77.11 mL/min Estimated GFR (MDRD) > 60.0 ml/min Glucose 95 (74-106) mg/dL Calcium 8.7 (8.5-10.1) mg/dL Magnesium (1.8-2.4) mg/dL Total Bilirubin 0.9 (0.2-1.0) mg/dL AST 14 L (15-37) IU/L ALT 17 (14-63) IU/L Alkaline Phosphatase 93 (46-116) U/L Creatine Kinase (26-308) U/L Troponin I (0.000-0.056) ng/mL Total Protein 8.3 H (6.4-8.2) g/dL Albumin 3.2 L (3.4-5.0) g/dL Globulin 5.1 H (2.6-4.0) g/dL Albumin/Globulin Ratio 0.6 L (0.9-1.6) Triglycerides (0-200) mg/dL Cholesterol (50-200) mg/dL LDL Cholesterol, Calc (60-180) mg/dL VLDL Cholesterol (5-55) mg/dL HDL Cholesterol (40-60) mg/dL Cholesterol/HDL Ratio (3.3-6.0) Lipase 1230 H (73-393) U/L Urine Color YELLOW Urine Appearance CLEAR Urine pH 5.5 (5.0-8.0) Ur Specific Patten 1.020 (1.001-1.035) Urine Protein NEGATIVE (NEGATIVE) mg/dL Urine Glucose (UA) NEGATIVE (NEGATIVE) mg/dL Urine Ketones NEGATIVE (NEGATIVE) mg/dL Urine Occult Blood LARGE H (NEGATIVE) Urine Nitrite NEGATIVE (NEGATIVE) Urine Bilirubin NEGATIVE (NEGATIVE) Urine Urobilinogen 0.2 (<2.0) EU/dL Ur Leukocyte Esterase NEGATIVE (NEGATIVE) Urine RBC 0-3 (0-2/HPF) Urine WBC 0-2 (0-5/HPF) Ur Epithelial Cells OCCASIONAL (NONE-FEW) Urine Bacteria RARE (NEGATIVE) 04/24/19 04/25/19 04/25/19 Range/Units 13:20 06:11 06:11 WBC 4.25 (4.0-11.0) K/uL RBC 3.30 L (4.30-5.90) M/uL Hgb 9.4 L (12.0-16.0) g/dL Hct 30.3 L (36.0-46.0) % MCV 91.8 (80.0-98.0) fL MCH 28.5 (27.0-32.0) pg MCHC 31.0 (31.0-37.0) g/dL RDW Std Deviation 55.7 (28.0-62.0) fl RDW Coeff of Raissa 17 H (11.0-15.0) % Plt Count 311 (150-400) K/uL MPV 10.00 (7.40-12.00) fL Neut % (Auto) 70.8 (48.0-80.0) % Lymph % (Auto) 14.8 L (16.0-40.0) % [place] % (Auto) 11.1 (0.0-15.0) % Eos % (Auto) 1.9 (0.0-7.0) % Baso % (Auto) 1.4 (0.0-1.5) % Neut # (Auto) 3.0 (1.4-5.7) K/uL Lymph # (Auto) 0.6 (0.6-2.4) K/uL [place] # (Auto) 0.5 (0.0-0.8) K/uL Eos # (Auto) 0.1 (0.0-0.7) K/uL Baso # (Auto) 0.1 (0.0-0.1) K/uL Nucleated RBC % 0.0 /100WBC Nucleated RBCs # 0 K/uL Sodium 140 (136-145) mmol/L Potassium 3.1 L (3.5-5.1) mmol/L Chloride 106 (98-107) mmol/L Carbon Dioxide 25.8 (21.0-32.0) mmol/L BUN 10 (7.0-18.0) mg/dL Creatinine 0.8 (0.6-1.0) mg/dL Est Cr Clr Drug Dosing 86.75 mL/min Estimated GFR (MDRD) > 60.0 ml/min Glucose 98 (74-106) mg/dL Calcium 7.9 L (8.5-10.1) mg/dL Magnesium (1.8-2.4) mg/dL Total Bilirubin 0.6 (0.2-1.0) mg/dL AST 13 L (15-37) IU/L ALT 14 (14-63) IU/L Alkaline Phosphatase 77 (46-116) U/L Creatine Kinase 56 (26-308) U/L Troponin I < 0.050 (0.000-0.056) ng/mL Total Protein 7.1 (6.4-8.2) g/dL Albumin 2.7 L (3.4-5.0) g/dL Globulin 4.4 H (2.6-4.0) g/dL Albumin/Globulin Ratio 0.6 L (0.9-1.6) Triglycerides (0-200) mg/dL Cholesterol (50-200) mg/dL LDL Cholesterol, Calc (60-180) mg/dL VLDL Cholesterol (5-55) mg/dL HDL Cholesterol (40-60) mg/dL Cholesterol/HDL Ratio (3.3-6.0) Lipase 612 H (73-393) U/L Urine Color Urine Appearance Urine pH (5.0-8.0) Ur Specific Patten (1.001-1.035) Urine Protein (NEGATIVE) mg/dL Urine Glucose (UA) (NEGATIVE) mg/dL Urine Ketones (NEGATIVE) mg/dL Urine Occult Blood (NEGATIVE) Urine Nitrite (NEGATIVE) Urine Bilirubin (NEGATIVE) Urine Urobilinogen (<2.0) EU/dL Ur Leukocyte Esterase (NEGATIVE) Urine RBC (0-2/HPF) Urine WBC (0-5/HPF) Ur Epithelial Cells (NONE-FEW) Urine Bacteria (NEGATIVE) 04/25/19 Range/Units 06:11 WBC (4.0-11.0) K/uL RBC (4.30-5.90) M/uL Hgb (12.0-16.0) g/dL Hct (36.0-46.0) % MCV (80.0-98.0) fL MCH (27.0-32.0) pg MCHC (31.0-37.0) g/dL RDW Std Deviation (28.0-62.0) fl RDW Coeff of Raissa (11.0-15.0) % Plt Count (150-400) K/uL MPV (7.40-12.00) fL Neut % (Auto) (48.0-80.0) % Lymph % (Auto) (16.0-40.0) % [place] % (Auto) (0.0-15.0) % Eos % (Auto) (0.0-7.0) % Baso % (Auto) (0.0-1.5) % Neut # (Auto) (1.4-5.7) K/uL Lymph # (Auto) (0.6-2.4) K/uL [place] # (Auto) (0.0-0.8) K/uL Eos # (Auto) (0.0-0.7) K/uL Baso # (Auto) (0.0-0.1) K/uL Nucleated RBC % /100WBC Nucleated RBCs # K/uL Sodium (136-145) mmol/L Potassium (3.5-5.1) mmol/L Chloride (98-107) mmol/L Carbon Dioxide (21.0-32.0) mmol/L BUN (7.0-18.0) mg/dL Creatinine (0.6-1.0) mg/dL Est Cr Clr Drug Dosing mL/min Estimated GFR (MDRD) ml/min Glucose (74-106) mg/dL Calcium (8.5-10.1) mg/dL Magnesium 2.0 (1.8-2.4) mg/dL Total Bilirubin (0.2-1.0) mg/dL AST (15-37) IU/L ALT (14-63) IU/L Alkaline Phosphatase (46-116) U/L Creatine Kinase (26-308) U/L Troponin I (0.000-0.056) ng/mL Total Protein (6.4-8.2) g/dL Albumin (3.4-5.0) g/dL Globulin (2.6-4.0) g/dL Albumin/Globulin Ratio (0.9-1.6) Triglycerides 78 (0-200) mg/dL Cholesterol 135 (50-200) mg/dL LDL Cholesterol, Calc 55 L (60-180) mg/dL VLDL Cholesterol 15 (5-55) mg/dL HDL Cholesterol 64 H (40-60) mg/dL Cholesterol/HDL Ratio 2.1 L (3.3-6.0) Lipase (73-393) U/L Urine Color Urine Appearance Urine pH (5.0-8.0) Ur Specific Patten (1.001-1.035) Urine Protein (NEGATIVE) mg/dL Urine Glucose (UA) (NEGATIVE) mg/dL Urine Ketones (NEGATIVE) mg/dL Urine Occult Blood (NEGATIVE) Urine Nitrite (NEGATIVE) Urine Bilirubin (NEGATIVE) Urine Urobilinogen (<2.0) EU/dL Ur Leukocyte Esterase (NEGATIVE) Urine RBC (0-2/HPF) Urine WBC (0-5/HPF) Ur Epithelial Cells (NONE-FEW) Urine Bacteria (NEGATIVE) Ke Results Last 24 Hours: Microbiology 04/25/19 10:20 Clostridium difficile Toxin A & B - Final Stool / Feces Positive C. Diff Antigen 04/25/19 10:20 Campylobacter Antigen Assay - Final Stool / Feces NEGATIVE CAMPYLOBACTER AG REFERENCE RANGE: NEGATIVE Med Orders - Current: Current Medications Acetaminophen (Tylenol) 650 mg PO Q4H PRN PRN Reason: Pain (Mild 1-3)/fever Docusate Sodium (Colace) 100 mg PO BID PRN PRN Reason: Constipation Enoxaparin Sodium (Lovenox) 30 mg SUBCUT Q24H [facility] Last Admin: 04/24/19 16:27 Dose: 30 mg Hydromorphone HCl (Dilaudid) 0.5 mg IVPUSH Q2H PRN PRN Reason: Pain (severe 7-10) Pantoprazole Sodium 40 mg/ (Sodium Chloride) 10 mls @ 300 mls/hr IVPUSH Q24H [facility] Last Admin: 04/25/19 08:41 Dose: 300 mls/hr Potassium Chloride/Sodium Chloride (Normal Saline With 40 Meq Kcl) 1,000 mls @ 150 mls/hr IV ASDIRECTED [facility] Ondansetron HCl (Zofran) 4 mg IVPUSH Q4H PRN PRN Reason: Nausea/Vomiting Oxycodone HCl (Oxycodone) 5 mg PO Q4H PRN PRN Reason: Pain (moderate 4-6) Vancomycin HCl (First-Vancomycin 25 Compounding Kit) 125 mg PO QID [facility] Last Admin: 04/25/19 11:41 Dose: 5 ml Discontinued Medications Al Hydroxide/Mg Hydroxide 15 ml/ Metoclopramide HCl 5 mg/Lidocaine HCl 5 ml 0 ml PO ONETIME ONE Stop: 04/24/19 13:59 Last Admin: 04/24/19 14:15 Dose: 5 each Sodium Chloride (Normal Saline) 1,000 mls @ 999 mls/hr IV STAT ONE Stop: 04/24/19 14:10 Last Admin: 04/24/19 13:28 Dose: 999 mls/hr Sodium Chloride (Normal Saline) 1,000 mls @ 150 mls/hr IV STAT ONE Stop: 04/24/19 21:02 Last Admin: 04/24/19 15:14 Dose: 150 mls/hr Sodium Chloride (Normal Saline) 1,000 mls @ 125 mls/hr IV ASDIRECTED [facility] Last Admin: 04/25/19 08:01 Dose: 125 mls/hr Iopamidol (Isovue Multipack-370 (76%)) 100 ml IVPUSH ONETIME ONE Stop: 04/24/19 15:00 Last Admin: 04/24/19 14:59 Dose: 100 ml Lisinopril (Prinivil) 10 mg PO DAILY [facility] Ondansetron HCl (Zofran) 4 mg IVPUSH ONETIME ONE Stop: 04/24/19 13:11 Last Admin: 04/24/19 13:29 Dose: 4 mg - Exam General: Alert, Oriented, Cooperative, No Acute Distress Lungs: Clear to Auscultation, Normal Respiratory Effort Cardiovascular: Regular Rate, Regular Rhythm GI/Abdominal Exam: Normal Bowel Sounds, Soft, Non-Tender, Distended Extremities: Normal Inspection, Normal Range of Motion, Non-Tender, No Pedal Edema Wound/Incisions: Healing Well Neurological: No New Focal Deficit Psy/Mental Status: Alert, Normal Affect, Normal Mood - Problem List & Annotations (1) Diarrhea SNOMED Code(s): 35789387 Code(s): R19.7 - DIARRHEA, UNSPECIFIED Status: Acute Priority: High Current Visit: Yes Qualifiers: Diarrhea type: presumed infectious Qualified Code(s): R19.7 - Diarrhea, unspecified (2) Intractable nausea and vomiting SNOMED Code(s): 450960090 Code(s): R11.2 - NAUSEA WITH VOMITING, UNSPECIFIED Status: Acute Priority : High Current Visit: Yes Qualifiers: Vomiting type: unspecified Qualified Code(s): R11.2 - Nausea with vomiting , unspecified (3) Pancreatitis SNOMED Code(s): 01421251 Code(s): K85.90 - ACUTE PANCREATITIS WITHOUT NECROSIS OR INFECTION, UNSP Status: Acute Current Visit: Yes Qualifiers: Chronicity: acute Pancreatitis type: unspecified pancreatitis type Acute pancreatitis complication: unspecified Qualified Code(s): K85.90 - Acute pancreatitis without necrosis or infection, unspecified (4) C. difficile diarrhea SNOMED Code(s): 0013521738775 Code(s): A04.72 - ENTEROCOLITIS D/T CLOSTRIDIUM DIFFICILE, NOT SPCF RECUR Status: Acute Current Visit: Yes - Problem List Review Problem List Initiated/Reviewed/Updated: Yes - My Orders Last 24 Hours: My Active Orders 04/25/19 08:01 Abdomen Ltd [US] Routine 04/25/19 08:15 Pantoprazole [ProTONIX IV] 40 mg Sodium Chloride 0.9% [Normal Saline] 10 ml IVPUSH Q24H 04/25/19 09:00 Sodium Chloride 0.9% with KCl [Normal Saline with 40 mEq KCl] 1,000 ml IV ASDIRECTED 04/25/19 12:00 Vancomycin [First-Vancomycin 25 Compounding Kit] 125 mg PO QID 04/25/19 Lunch NPO [Nothing Per Oral Diet] [DIET] - Plan Plan:: This 49 year old female admitted with nausea vomiting, diarrhea and abdominal pain, found to have pancreatitis. 1. Pancreatitis: Lipase improving. Attempted CL diet this morning, but nausea returned. Will continue with NPO diet for now. Continue IVFs, NS at 175. Diarrhea this morning after CL. Cdiff antigen positive. Will start Vancomycin 125 mcg PO QID. Discussed this with her and her . Continue Zofran PRN. lipid panel negative. Awaiting RUQ US to rule out gallstones. 2. Hypokalemia: Likely secondary to diarrhea. Replace today and monitor. Mg 2.0. 3. HTN: Stable, continue Valsartan. Hold Chlorthalidone. VTE prophylaxis: Lovenox. Dispo: 1-2 days pending improvement <Anthony De - Last Filed: 04/25/19 16:27> - General Info Admission Dx/Problem (Free Text): I have examined the patient independently of Justine Dias CNP. I have discussed the case with her. I have reviewed and agree with the examination and plan as outlined by her. Please see orders. - Patient Data Vitals - Most Recent: Last Vital Signs Temp 36.7 C 04/25/19 11:42 Pulse 70 04/25/19 11:42 Resp 16 04/25/19 11:42 BP 139/86 04/25/19 11:42 Pulse Ox 99 04/25/19 11:42 I&O - Last 24 Hours: Intake & Output 04/25/19 04/25/19 04/25/19 06:59 14:59 22:59 Intake Total 1475 1434 Output Total 1100 Balance 375 1434 Lab Results Last 24 Hours: Laboratory Results - last 24 hr 04/25/19 04/25/19 04/25/19 Range/Units 06:11 06:11 06:11 WBC 4.25 (4.0-11.0) K/uL RBC 3.30 L (4.30-5.90) M/uL Hgb 9.4 L (12.0-16.0) g/dL Hct 30.3 L (36.0-46.0) % MCV 91.8 (80.0-98.0) fL MCH 28.5 (27.0-32.0) pg MCHC 31.0 (31.0-37.0) g/dL RDW Std Deviation 55.7 (28.0-62.0) fl RDW Coeff of Raisas 17 H (11.0-15.0) % Plt Count 311 (150-400) K/uL MPV 10.00 (7.40-12.00) fL Neut % (Auto) 70.8 (48.0-80.0) % Lymph % (Auto) 14.8 L (16.0-40.0) % [place] % (Auto) 11.1 (0.0-15.0) % Eos % (Auto) 1.9 (0.0-7.0) % Baso % (Auto) 1.4 (0.0-1.5) % Neut # (Auto) 3.0 (1.4-5.7) K/uL Lymph # (Auto) 0.6 (0.6-2.4) K/uL [place] # (Auto) 0.5 (0.0-0.8) K/uL Eos # (Auto) 0.1 (0.0-0.7) K/uL Baso # (Auto) 0.1 (0.0-0.1) K/uL Nucleated RBC % 0.0 /100WBC Nucleated RBCs # 0 K/uL Sodium 140 (136-145) mmol/L Potassium 3.1 L (3.5-5.1) mmol/L Chloride 106 (98-107) mmol/L Carbon Dioxide 25.8 (21.0-32.0) mmol/L BUN 10 (7.0-18.0) mg/dL Creatinine 0.8 (0.6-1.0) mg/dL Est Cr Clr Drug Dosing 86.75 mL/min Estimated GFR (MDRD) > 60.0 ml/min Glucose 98 (74-106) mg/dL Calcium 7.9 L (8.5-10.1) mg/dL Magnesium 2.0 (1.8-2.4) mg/dL Total Bilirubin 0.6 (0.2-1.0) mg/dL AST 13 L (15-37) IU/L ALT 14 (14-63) IU/L Alkaline Phosphatase 77 (46-116) U/L Total Protein 7.1 (6.4-8.2) g/dL Albumin 2.7 L (3.4-5.0) g/dL Globulin 4.4 H (2.6-4.0) g/dL Albumin/Globulin Ratio 0.6 L (0.9-1.6) Triglycerides 78 (0-200) mg/dL Cholesterol 135 (50-200) mg/dL LDL Cholesterol, Calc 55 L (60-180) mg/dL VLDL Cholesterol 15 (5-55) mg/dL HDL Cholesterol 64 H (40-60) mg/dL Cholesterol/HDL Ratio 2.1 L (3.3-6.0) Lipase 612 H (73-393) U/L Ke Results Last 24 Hours: Microbiology 04/25/19 10:20 Clostridium difficile Toxin A & B - Final Stool / Feces Positive C. Diff Antigen 04/25/19 10:20 Campylobacter Antigen Assay - Final Stool / Feces NEGATIVE CAMPYLOBACTER AG REFERENCE RANGE: NEGATIVE Med Orders - Current: Current Medications Acetaminophen (Tylenol) 650 mg PO Q4H PRN PRN Reason: Pain (Mild 1-3)/fever Last Admin: 04/25/19 14:57 Dose: 650 mg Docusate Sodium (Colace) 100 mg PO BID PRN PRN Reason: Constipation Enoxaparin Sodium (Lovenox) 30 mg SUBCUT Q24H [facility] Last Admin: 04/25/19 14:49 Dose: 30 mg Hydromorphone HCl (Dilaudid) 0.5 mg IVPUSH Q2H PRN PRN Reason: Pain (severe 7-10) Pantoprazole Sodium 40 mg/ (Sodium Chloride) 10 mls @ 300 mls/hr IVPUSH Q24H [facility] Last Admin: 04/25/19 08:41 Dose: 300 mls/hr Sodium Chloride (Normal Saline) 1,000 mls @ 175 mls/hr IV ASDIRECTED [facility] Ondansetron HCl (Zofran) 4 mg IVPUSH Q4H PRN PRN Reason: Nausea/Vomiting Last Admin: 04/25/19 13:21 Dose: 4 mg Oxycodone HCl (Oxycodone) 5 mg PO Q4H PRN PRN Reason: Pain (moderate 4-6) Valsartan (Diovan) 80 mg PO DAILY [facility] Vancomycin HCl (First-Vancomycin 25 Compounding Kit) 125 mg PO QID [facility] Last Admin: 04/25/19 11:41 Dose: 5 ml Discontinued Medications Al Hydroxide/Mg Hydroxide 15 ml/ Metoclopramide HCl 5 mg/Lidocaine HCl 5 ml 0 ml PO ONETIME ONE Stop: 04/24/19 13:59 Last Admin: 04/24/19 14:15 Dose: 5 each Sodium Chloride (Normal Saline) 1,000 mls @ 999 mls/hr IV STAT ONE Stop: 04/24/19 14:10 Last Admin: 04/24/19 13:28 Dose: 999 mls/hr Sodium Chloride (Normal Saline) 1,000 mls @ 150 mls/hr IV STAT ONE Stop: 04/24/19 21:02 Last Admin: 04/24/19 15:14 Dose: 150 mls/hr Sodium Chloride (Normal Saline) 1,000 mls @ 125 mls/hr IV ASDIRECTED [facility] Last Admin: 04/25/19 08:01 Dose: 125 mls/hr Potassium Chloride/Sodium Chloride (Normal Saline With 40 Meq Kcl) 1,000 mls @ 150 mls/hr IV ASDIRECTED [facility] Stop: 04/25/19 16:00 Last Admin: 04/25/19 11:47 Dose: 150 mls/hr Iopamidol (Isovue Multipack-370 (76%)) 100 ml IVPUSH ONETIME ONE Stop: 04/24/19 15:00 Last Admin: 04/24/19 14:59 Dose: 100 ml Lisinopril (Prinivil) 10 mg PO DAILY [facility] Ondansetron HCl (Zofran) 4 mg IVPUSH ONETIME ONE Stop: 04/24/19 13:11 Last Admin: 04/24/19 13:29 Dose: 4 mg - Problem List & Annotations (1) Pancreatitis SNOMED Code(s): 75350231 Code(s): K85.90 - ACUTE PANCREATITIS WITHOUT NECROSIS OR INFECTION, UNSP Status: Acute Current Visit: Yes Qualifiers: Chronicity: acute Pancreatitis type: unspecified pancreatitis type Acute pancreatitis complication: unspecified Qualified Code(s): K85.90 - Acute pancreatitis without necrosis or infection, unspecified (2) Intractable nausea and vomiting SNOMED Code(s): 100455649 Code(s): R11.2 - NAUSEA WITH VOMITING, UNSPECIFIED Status: Acute Priority : High Current Visit: Yes Qualifiers: Vomiting type: unspecified Qualified Code(s): R11.2 - Nausea with vomiting , unspecified (3) Diarrhea SNOMED Code(s): 95230194 Code(s): R19.7 - DIARRHEA, UNSPECIFIED Status: Acute Priority: High Current Visit: Yes Qualifiers: Diarrhea type: presumed infectious Qualified Code(s): R19.7 - Diarrhea, unspecified
--- NOTE | 2019-04-25 12:33 | US ---
EXAMINATION: Right upper quadrant ultrasound HISTORY: Pancreatitis COMPARISON: CT dated 04/24/2019 TECHNIQUE: Grayscale and color Doppler imaging obtained. FINDINGS: The visualized pancreas appears grossly normal. The liver is normal in contour and echotexture without a focal hepatic mass. The gallbladder wall thickness is normal. No pericholecystic fluid or shadowing gallstones. Common bile duct measures 4 mm. The right kidney measures at least 12.1 cm [id number] without evidence hydronephrosis. Sonographic Espinosa sign is negative. IMPRESSION: Grossly unremarkable right upper quadrant ultrasound.
[2019-04-25] MEDS: Enoxaparin 30 MG/0.3 ML Syringe SUBCUT SCH (14:49)
[2019-04-25] MEDS: oxyCODONE 5 MG Tab PO PRN (23:40)
[2019-04-26] MEDS: Sodium Chloride 0.9% 1,000 ML IV SCH (03:19)
[2019-04-26 05:49] LABS: CHLORIDE,CL 106 mmol/L (98-107); SODIUM,NA 138 mmol/L (136-145)
[2019-04-26] MEDS: Vancomycin 25 MG/ML Compounding Kit PO SCH ×2 (06:01→12:27)
[2019-04-26] MEDS: oxyCODONE 5 MG Tab PO PRN (06:07)
[2019-04-26] MEDS: Pantoprazole 40 MG in Sodium Chloride 0.9% 10 ML IVPUSH SCH (08:21)
[2019-04-26] MEDS ORDERED: Sodium Chloride 0.9% with KCl 1,000 ML IV SCH (08:30)
--- NOTE | 2019-04-26 12:20 | PCM.DCSUM1 ---
<Justine Dias M - Last Filed: 04/26/19 13:14> Discharge Summary - Hospital Course Brief History: The patient's a 49-year-old lady who had presented to the emergency department primarily out of concern for, vomiting and diarrhea. The patient says that she had acute onset of her symptoms last week shortly after eating at a local taco shop. The patient reports that she has had multiple episodes of nausea or vomiting. The patient says that she's had 5-8 loose stools per day. The patient also says that she has had fever and cold feeling over the past week. The patient has denied any hematochezia or hematemesis. No chest pain. The patient has been in her usual state of health up until history of present illness and she only has been taking lisinopril for hypertension. The patient says that she has a history of drinking 2-3 beers per day. No previous gallbladder issues. Diagnosis: Stroke: No - Discharge Data Discharge Date: 04/26/19 Discharge Disposition: Home, Self-Care 01 Condition: Good - Discharge Diagnosis/Problem(s) (1) Diarrhea SNOMED Code(s): 22475017 ICD Code: R19.7 - DIARRHEA, UNSPECIFIED Status: Acute Priority: High Qualifiers: Diarrhea type: presumed infectious Qualified Code(s): R19.7 - Diarrhea, unspecified (2) Intractable nausea and vomiting SNOMED Code(s): 321110312 ICD Code: R11.2 - NAUSEA WITH VOMITING, UNSPECIFIED Status: Acute Priority: High Qualifiers: Vomiting type: unspecified Qualified Code(s): R11.2 - Nausea with vomiting , unspecified (3) Pancreatitis SNOMED Code(s): 86737684 ICD Code: K85.90 - ACUTE PANCREATITIS WITHOUT NECROSIS OR INFECTION, UNSP Status: Acute Qualifiers: Chronicity: acute Pancreatitis type: unspecified pancreatitis type Acute pancreatitis complication: unspecified Qualified Code(s): K85.90 - Acute pancreatitis without necrosis or infection, unspecified (4) C. difficile diarrhea SNOMED Code(s): 9377309728678 ICD Code: A04.72 - ENTEROCOLITIS D/T CLOSTRIDIUM DIFFICILE, NOT SPCF RECUR Status: Acute - Patient Instructions Diet: Full Liquid Diet (slowly advance to regular diet over next several days. Low fat) Activity: As Tolerated Showering/Bathing: February Shower Notify Provider of: Fever, Increased Pain, Swelling and Redness, Drainage, Nausea and/or Vomiting - Discharge Plan *PRESCRIPTION DRUG MONITORING PROGRAM REVIEWED*: Not Applicable *COPY OF PRESCRIPTION DRUG MONITORING REPORT IN PATIENT FLORES: Not Applicable Home Medications: Home Meds Chlorthalidone 25 mg PO QAM 04/24/19 [History] Esomeprazole Magnesium 20 mg PO BID 04/24/19 [History] Valsartan 80 mg PO DAILY 04/24/19 [History] Acetaminophen [Tylenol] 650 mg PO Q4H PRN tablet 04/26/19 [Rx] Vancomycin [First-Vancomycin 25 Compounding Kit] 125 mg PO QID #1 bottle [Rx] Oxygen Therapy Mode: Room Air Patient Handouts: Acute Pancreatitis, [id number], Clostridium Difficile Infection, Vancomycin oral solution, Full Liquid Diet Referrals: Juancarlos Meza MD [Resident] - 05/06/19 2:00 pm ([address], [place] [address] ) - Discharge Summary/Plan Comment DC Time >30 min.: No Discharge Summary/Plan Comment: Admitting Diagnoses: Pancreatitis Diarrhea N/V Discharge Diagnoses: Pancreatitis Cdiff diarrhea Annastasia was admitted due to intractable N/V and abdominal pain along with some diarrhea. CT revealed pancreatitis along with elevated lipase. She was treated with IVF resuscitation and bowel rest. RUQ obtained which revealed no gallbladder disease or stones. Lipid panel WNL. Stool studies were obtained which did reveal Cdiff antigen, which could be cause of diarrhea and gastroenteritis. She was treated with Vancomycin 125 mg PO QID for Cdiff. Today she is feeling improved and tried CL diet. She was able to tolerate this and is requesting discharge home. She has very little pain and no further nausea. She is to continue FL diet for next couple days then slowly advance to regular diet , low fat. She is to have repeat CT scan of pancreas in the coming weeks to evaluate for mass as CT revealed stranding but recommended follow up imaging. Patient and are aware of this needing to be completed. She will be discharged home today. She is to return to ED or clinic if concerns should arise. - General Info Date of Service: 04/26/19 Admission Dx/Problem (Free Text: Pancreatitis, C diff diarrhea Subjective Update: Doing well today, eager to try liquids. In which she tolerated and is requesting discharge home. Scant tenderness to epigastric region. No nausea or chest pain. No further diarrhea. Functional Status: Reports: Pain Controlled, Tolerating Diet, Ambulating, Urinating - Review of Systems General: Reports: No Symptoms. Denies: Weakness, Fatigue, Malaise HEENT: Reports: No Symptoms. Denies: Headaches, Sore Throat, Visual Changes Pulmonary: Reports: No Symptoms. Denies: Shortness of Breath Cardiovascular: Reports: No Symptoms. Denies: Chest Pain Gastrointestinal: Reports: No Symptoms. Denies: Abdominal Pain, Nausea, Vomiting Genitourinary: Reports: No Symptoms Musculoskeletal: Reports: No Symptoms Neurological: Reports: No Symptoms Psychiatric: Reports: No Symptoms - Patient Data Vitals - Most Recent: Last Vital Signs Temp 97.1 F 04/26/19 07:50 Pulse 61 04/26/19 07:50 Resp 16 04/26/19 07:50 BP 152/96 H 04/26/19 08:20 Pulse Ox 98 04/26/19 07:50 Weight - Most Recent: 83 kg I&O - Last 24 hours: Intake & Output 04/25/19 04/26/19 04/26/19 22:59 06:59 14:59 Intake Total 860 1000 Output Total 800 Balance 60 1000 Lab Results - Last 24 hrs: Laboratory Results - last 24 hr 04/26/19 04/26/19 Range/Units 04:45 04:45 WBC 2.95 L (4.0-11.0) K/uL RBC 3.13 L (4.30-5.90) M/uL Hgb 9.0 L (12.0-16.0) g/dL Hct 28.9 L (36.0-46.0) % MCV 92.3 (80.0-98.0) fL MCH 28.8 (27.0-32.0) pg MCHC 31.1 (31.0-37.0) g/dL RDW Std Deviation 55.2 (28.0-62.0) fl RDW Coeff of Raissa 16 H (11.0-15.0) % Plt Count 323 (150-400) K/uL MPV 10.10 (7.40-12.00) fL Add Manual Diff YES Neutrophils % (Manual) 51 (48.0-80.0) % Band Neutrophils % 1 % Lymphocytes % (Manual) 32 (16.0-40.0) % Monocytes % (Manual) 8 (0.0-15.0) % Eosinophils % (Manual) 4 (0.0-7.0) % Basophils % (Manual) 4 H (0.0-1.5) % Nucleated RBC % 0.0 /100WBC Absolute Seg Neuts 1.5 (1.4-5.7) Band Neutrophils # 0 Lymphocytes # (Manual) 0.9 (0.6-2.4) Monocytes # (Manual) 0.2 (0.0-0.8) Eosinophils # (Manual) 0.1 (0.0-0.7) Basophils # (Manual) 0.1 (0.0-0.1) Nucleated RBCs # 0 K/uL Sodium 138 (136-145) mmol/L Potassium 3.3 L (3.5-5.1) mmol/L Chloride 106 (98-107) mmol/L Carbon Dioxide 23.9 (21.0-32.0) mmol/L BUN 7 (7.0-18.0) mg/dL Creatinine 0.7 (0.6-1.0) mg/dL Est Cr Clr Drug Dosing 99.15 mL/min Estimated GFR (MDRD) > 60.0 ml/min Glucose 99 (74-106) mg/dL Calcium 7.7 L (8.5-10.1) mg/dL Total Bilirubin 0.2 (0.2-1.0) mg/dL AST 15 (15-37) IU/L ALT 13 L (14-63) IU/L Alkaline Phosphatase 61 (46-116) U/L Total Protein 6.5 (6.4-8.2) g/dL Albumin 2.4 L (3.4-5.0) g/dL Globulin 4.1 H (2.6-4.0) g/dL Albumin/Globulin Ratio 0.6 L (0.9-1.6) SEAN Results - Last 24 hrs: Microbiology 04/25/19 10:20 Clostridium difficile Toxin A & B - Final Stool / Feces Positive C. Diff Antigen 04/25/19 10:20 Campylobacter Antigen Assay - Final Stool / Feces NEGATIVE CAMPYLOBACTER AG REFERENCE RANGE: NEGATIVE Med Orders - Current: Current Medications Acetaminophen (Tylenol) 650 mg PO Q4H PRN PRN Reason: Pain (Mild 1-3)/fever Last Admin: 04/25/19 14:57 Dose: 650 mg Docusate Sodium (Colace) 100 mg PO BID PRN PRN Reason: Constipation Enoxaparin Sodium (Lovenox) 30 mg SUBCUT Q24H [facility] Last Admin: 04/25/19 14:49 Dose: 30 mg Hydromorphone HCl (Dilaudid) 0.5 mg IVPUSH Q2H PRN PRN Reason: Pain (severe 7-10) Pantoprazole Sodium 40 mg/ (Sodium Chloride) 10 mls @ 300 mls/hr IVPUSH Q24H [facility] Last Admin: 04/26/19 08:21 Dose: 300 mls/hr Potassium Chloride/Sodium Chloride (Normal Saline With 40 Meq Kcl) 1,000 mls @ 150 mls/hr IV ASDIRECTED [facility] Last Admin: 04/26/19 10:20 Dose: 150 mls/hr Ondansetron HCl (Zofran) 4 mg IVPUSH Q4H PRN PRN Reason: Nausea/Vomiting Last Admin: 04/25/19 13:21 Dose: 4 mg Oxycodone HCl (Oxycodone) 5 mg PO Q4H PRN PRN Reason: Pain (moderate 4-6) Last Admin: 04/26/19 06:07 Dose: 5 mg Valsartan (Diovan) 80 mg PO DAILY [facility] Last Admin: 04/26/19 08:20 Dose: 80 mg Vancomycin HCl (First-Vancomycin 25 Compounding Kit) 125 mg PO QID [facility] Last Admin: 04/26/19 06:01 Dose: 5 ml Discontinued Medications Al Hydroxide/Mg Hydroxide 15 ml/ Metoclopramide HCl 5 mg/Lidocaine HCl 5 ml 0 ml PO ONETIME ONE Stop: 04/24/19 13:59 Last Admin: 04/24/19 14:15 Dose: 5 each Sodium Chloride (Normal Saline) 1,000 mls @ 999 mls/hr IV STAT ONE Stop: 04/24/19 14:10 Last Admin: 04/24/19 13:28 Dose: 999 mls/hr Sodium Chloride (Normal Saline) 1,000 mls @ 150 mls/hr IV STAT ONE Stop: 04/24/19 21:02 Last Admin: 04/24/19 15:14 Dose: 150 mls/hr Sodium Chloride (Normal Saline) 1,000 mls @ 125 mls/hr IV ASDIRECTED [facility] Last Admin: 04/25/19 08:01 Dose: 125 mls/hr Potassium Chloride/Sodium Chloride (Normal Saline With 40 Meq Kcl) 1,000 mls @ 150 mls/hr IV ASDIRECTED [facility] Stop: 04/25/19 16:00 Last Admin: 04/25/19 11:47 Dose: 150 mls/hr Sodium Chloride (Normal Saline) 1,000 mls @ 175 mls/hr IV ASDIRECTED [facility] Last Admin: 04/26/19 03:19 Dose: 175 mls/hr Iopamidol (Isovue Multipack-370 (76%)) 100 ml IVPUSH ONETIME ONE Stop: 04/24/19 15:00 Last Admin: 04/24/19 14:59 Dose: 100 ml Lisinopril (Prinivil) 10 mg PO DAILY [facility] Ondansetron HCl (Zofran) 4 mg IVPUSH ONETIME ONE Stop: 04/24/19 13:11 Last Admin: 04/24/19 13:29 Dose: 4 mg - Exam General: Reports: Alert, Oriented, Cooperative Neck: Reports: Supple Lungs: Reports: Clear to Auscultation, Normal Respiratory Effort Cardiovascular: Reports: Regular Rate, Regular Rhythm GI/Abdominal Exam: Normal Bowel Sounds, Soft, Non-Tender, No Distention Extremities: Normal Inspection, Normal Range of Motion, Non-Tender Neurological: Reports: No New Focal Deficit Psy/Mental Status: Reports: Alert, Normal Affect <Anthony De - Last Filed: 04/27/19 06:46> Discharge Summary - Hospital Course HPI Initial Comments: I have examined the patient independently of Justine Dias CNP. I have discussed the case with her. I have reviewed and agree with the examination and plan as outlined by her. Please see orders. - Discharge Diagnosis/Problem(s) (1) Pancreatitis SNOMED Code(s): 82587319 ICD Code: K85.90 - ACUTE PANCREATITIS WITHOUT NECROSIS OR INFECTION, UNSP Status: Acute Qualifiers: Chronicity: acute Pancreatitis type: unspecified pancreatitis type Acute pancreatitis complication: unspecified Qualified Code(s): K85.90 - Acute pancreatitis without necrosis or infection, unspecified (2) Intractable nausea and vomiting SNOMED Code(s): 125803820 ICD Code: R11.2 - NAUSEA WITH VOMITING, UNSPECIFIED Status: Acute Priority: High Qualifiers: Vomiting type: unspecified Qualified Code(s): R11.2 - Nausea with vomiting , unspecified (3) Diarrhea SNOMED Code(s): 67238380 ICD Code: R19.7 - DIARRHEA, UNSPECIFIED Status: Acute Priority: High Qualifiers: Diarrhea type: presumed infectious Qualified Code(s): R19.7 - Diarrhea, unspecified - Patient Data Vitals - Most Recent: Last Vital Signs Temp 36.2 C 04/26/19 07:50 Pulse 61 04/26/19 07:50 Resp 16 04/26/19 07:50 BP 152/96 H 04/26/19 08:20 Pulse Ox 98 04/26/19 07:50 I&O - Last 24 hours: Intake & Output 04/26/19 04/26/19 04/27/19 14:59 22:59 06:59 Intake Total 300 Balance 300 SEAN Results - Last 24 hrs: Microbiology 04/25/19 10:20 Campylobacter Antigen Assay - Final Stool / Feces NEGATIVE CAMPYLOBACTER AG REFERENCE RANGE: NEGATIVE Shiga Toxin I - Final NEGATIVE FOR SHIGA TOXIN 1 REFERENCE RANGE: NEGATIVE Shiga Toxin II - Final NEGATIVE FOR SHIGA TOXIN 2 REFERENCE RANGE: NEGATIVE 04/25/19 10:20 Cryptosporidium/Giardia - Final Stool / Feces Med Orders - Current: Current Medications Discontinued Medications Acetaminophen (Tylenol) 650 mg PO Q4H PRN PRN Reason: Pain (Mild 1-3)/fever Last Admin: 04/25/19 14:57 Dose: 650 mg Al Hydroxide/Mg Hydroxide 15 ml/ Metoclopramide HCl 5 mg/Lidocaine HCl 5 ml 0 ml PO ONETIME ONE Stop: 04/24/19 13:59 Last Admin: 04/24/19 14:15 Dose: 5 each Docusate Sodium (Colace) 100 mg PO BID PRN PRN Reason: Constipation Enoxaparin Sodium (Lovenox) 30 mg SUBCUT Q24H [facility] Last Admin: 04/25/19 14:49 Dose: 30 mg Hydromorphone HCl (Dilaudid) 0.5 mg IVPUSH Q2H PRN PRN Reason: Pain (severe 7-10) Sodium Chloride (Normal Saline) 1,000 mls @ 999 mls/hr IV STAT ONE Stop: 04/24/19 14:10 Last Admin: 04/24/19 13:28 Dose: 999 mls/hr Sodium Chloride (Normal Saline) 1,000 mls @ 150 mls/hr IV STAT ONE Stop: 04/24/19 21:02 Last Admin: 04/24/19 15:14 Dose: 150 mls/hr Sodium Chloride (Normal Saline) 1,000 mls @ 125 mls/hr IV ASDIRECTED [facility] Last Admin: 04/25/19 08:01 Dose: 125 mls/hr Pantoprazole Sodium 40 mg/ (Sodium Chloride) 10 mls @ 300 mls/hr IVPUSH Q24H [facility] Last Admin: 04/26/19 08:21 Dose: 300 mls/hr Potassium Chloride/Sodium Chloride (Normal Saline With 40 Meq Kcl) 1,000 mls @ 150 mls/hr IV ASDIRECTED [facility] Stop: 04/25/19 16:00 Last Admin: 04/25/19 11:47 Dose: 150 mls/hr Sodium Chloride (Normal Saline) 1,000 mls @ 175 mls/hr IV ASDIRECTED [facility] Last Admin: 04/26/19 03:19 Dose: 175 mls/hr Potassium Chloride/Sodium Chloride (Normal Saline With 40 Meq Kcl) 1,000 mls @ 150 mls/hr IV ASDIRECTED [facility] Last Admin: 04/26/19 10:20 Dose: 150 mls/hr Iopamidol (Isovue Multipack-370 (76%)) 100 ml IVPUSH ONETIME ONE Stop: 04/24/19 15:00 Last Admin: 04/24/19 14:59 Dose: 100 ml Lisinopril (Prinivil) 10 mg PO DAILY [facility] Ondansetron HCl (Zofran) 4 mg IVPUSH ONETIME ONE Stop: 04/24/19 13:11 Last Admin: 04/24/19 13:29 Dose: 4 mg Ondansetron HCl (Zofran) 4 mg IVPUSH Q4H PRN PRN Reason: Nausea/Vomiting Last Admin: 04/25/19 13:21 Dose: 4 mg Oxycodone HCl (Oxycodone) 5 mg PO Q4H PRN PRN Reason: Pain (moderate 4-6) Last Admin: 04/26/19 06:07 Dose: 5 mg Valsartan (Diovan) 80 mg PO DAILY [facility] Last Admin: 04/26/19 08:20 Dose: 80 mg Vancomycin HCl (First-Vancomycin 25 Compounding Kit) 125 mg PO QID [facility] Last Admin: 04/26/19 12:27 Dose: 5 ml
== END 2019-04-26 13:50 | disposition home or self-care (01) ==
LOC: MW.ED 12:54 → MW.MS 15:21
PROVIDERS: ADMIT Internal Medicine; ATTEND Internal Medicine
DX: K85.90 Acute pancreatitis without necrosis or infection, unspecified (principal); A04.72 Enterocolitis due to Clostridium difficile, not specified as recurrent; R11.2 Nausea with vomiting, unspecified; I10 Essential (primary) hypertension; Z79.899 Other long term (current) drug therapy; Z88.5 Allergy status to narcotic agent
CPT/HCPCS: 36415; 74177; 76705; 80053; 80061; 81001; 82550; 83690; 83735; 84484; 85025; 87046; 87324; 87328; 87329; 87899; 96361; 96372; 96374; 96375; 96376; 99285; A9270; C9113; G0378; J1650; J2405; J3480; J7040; J7050; Q9967; 99283

== ENCOUNTER 2019-09-20 12:09 | Emergency (ER) | payer BC, OTHER ==
--- NOTE | 2019-09-20 12:20 | EDM.PDOC ---
ED HPI GENERAL MEDICAL PROBLEM - General Chief Complaint: Lower Extremity Injury/Pain Stated Complaint: FOOT INJURY Time Seen by Provider: 09/20/19 12:18 Source of Information: Reports: Patient History Limitations: Reports: No Limitations - History of Present Illness INITIAL COMMENTS - FREE TEXT/NARRATIVE: HISTORY AND PHYSICAL: History of present illness: Patient is a 49-year-old female who presents to the emergency room today with complaints of right foot pain. She states she was on her feet a lot yesterday while at work and is concerned that she may have rolled her foot or stepped wrong as she has pain at the base of her right great toe and radiating across the top of her anterior foot, pain is worse today. She denies any previous injury, trauma or surgeries of the affected extremity. Denies any numbness or tingling of the affected extremity. She is ambulatory and able to bear weight although this does cause increased pain. Offers no systemic complaints. Review of systems: As per history of present illness and below otherwise all systems reviewed and negative. Past medical history: As per history of present illness and as reviewed below otherwise noncontributory. Surgical history: As per history of present illness and as reviewed below otherwise noncontributory. Social history: See social history for further information Family history: As per history of present illness and as reviewed below otherwise noncontributory. Physical exam: General: Well-developed and well-nourished 49-year-old female. Alert and oriented. Nontoxic appearing and in no acute distress. HEENT: Atraumatic, normocephalic, pupils equal and reactive bilaterally, negative for conjunctival pallor or scleral icterus, mucous membranes moist, neck supple, nontender, trachea midline. No drooling or trismus noted. No meningeal signs. No hot potato voice noted. Lungs: Clear to auscultation, breath sounds equal bilaterally, chest nontender. Heart: S1S2, regular rate and rhythm without overt murmur Abdomen: Soft, nondistended, nontender. Skin: Erythema noted to the base of the right great toe. Remaining skin is intact, warm, dry. No lesions or rashes noted. Extremities: Tenderness with palpation of the right great toe across the anterior mid foot. Strong pedal pulse, cap refill less than 3 seconds, moves all extremities per self without difficulty or deficits. Neurovascular unremarkable. Neuro: Awake, alert, oriented. Cranial nerves II through XII unremarkable. Cerebellum unremarkable. Motor and sensory unremarkable throughout. Exam nonfocal. Notes: X-ray shows soft tissue swelling, but no acute fractures noted. Physical exam and presentation is consistent with gout. Medication and supportive care measures were reviewed and discussed. Voices understanding and is agreeable to plan of care. Denies any further questions or concerns at this time. Diagnostics: Foot x-ray Therapeutics: Toradol IM, Crutches Prescription: Colchicine Prednisone Diclofenac Impression: Gout Plan: 1. Rest, ice, elevate the affected extremity. Please wear the splint as directed. 2. Tylenol and/or Ibuprofen as needed for pain management. 3. Follow up with the Orthopedic provider as we discussed. Return to the ED as needed and as discussed. Definitive disposition and diagnosis as appropriate pending reevaluation and review of above. right foot Pain Score (Numeric/FACES): 10 - Related Data Allergies Allergy/AdvReac Type Severity Reaction Status Date / Time codeine Allergy Hives Verified 09/20/19 12:23 Home Meds: Home Meds Chlorthalidone 25 mg PO QAM 04/24/19 [History] Esomeprazole Magnesium 20 mg PO BID 04/24/19 [History] Valsartan 80 mg PO DAILY 04/24/19 [History] Acetaminophen [Tylenol] 650 mg PO Q4H PRN tablet 04/26/19 [Rx] Past Medical History HEENT History: Reports: None Cardiovascular History: Reports: Hypertension Respiratory History: Reports: None Gastrointestinal History: Reports: None Genitourinary History: Reports: None 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 ankle surgery Social & Family History - Family History Family Medical History: Noncontributory - Caffeine Use Caffeine Use: Reports: Soda - Living Situation & Occupation Living situation: Reports: , with Spouse Occupation: Employed Review of Systems - Review of Systems Review Of Systems: Comprehensive ROS is negative, except as noted in HPI. ED EXAM, GENERAL - Physical Exam Exam: See Below (See dictation) Course - Vital Signs Last Recorded V/S: Last Vital Signs Temp 97.7 F 09/20/19 12:22 Pulse 72 09/20/19 12:22 Resp 18 09/20/19 12:22 BP 182/109 H 09/20/19 12:22 Pulse Ox 99 09/20/19 12:22 - Orders/Labs/Meds Meds: Medications Discontinued Medications Generic Name Dose Route Start Last Admin Trade Name Matt PRN Reason Stop Dose Admin Ketorolac Tromethamine 60 mg 09/20/19 12:27 09/20/19 12:33 Toradol IM 09/20/19 12:28 60 mg ONETIME ONE Administration Departure - Departure Time of Disposition: 13:15 Disposition: Home, Self-Care 01 Clinical Impression: Gout Qualifiers: Gout site: foot Gout etiology: unspecified cause Chronicity: acute Laterality: right Qualified Code(s): M10.9 - Gout, unspecified - Discharge Information Instructions: Gout, [id number] Referrals: Savanah Gonsales MD [Primary Care Provider] - Forms: ED Department Discharge Additional Instructions: The following information is given to patients seen in the emergency department who are being discharged to home. This information is to outline your options for follow-up care. We provide all patients seen in our emergency department with a follow-up referral. The need for follow-up, as well as the timing and circumstances, are variable depending upon the specifics of your emergency department visit. If you don't have a primary care physician on staff, we will provide you with a referral. We always advise you to contact your personal physician following an emergency department visit to inform them of the circumstance of the visit and for follow-up with them and/or the need for any referrals to a consulting specialist. The emergency department will also refer you to a specialist when appropriate. This referral assures that you have the opportunity for follow-up care with a specialist. All of these measure are taken in an effort to provide you with optimal care, which includes your follow-up. Under all circumstances we always encourage you to contact your private physician who remains a resource for coordinating your care. When calling for follow-up care, please make the office aware that this follow-up is from your recent emergency room visit. If for any reason you are refused follow-up, please contact the [facility] Emergency Department at and asked to speak to the emergency department charge nurse. [facility] [address] [place] [address] [address] 1. Rest, ice, elevate the affected extremity. Please wear the splint as directed. 2. Tylenol and/or Ibuprofen as needed for pain management. 3. Follow up with the Orthopedic provider as we discussed. Return to the ED as needed and as discussed. Sepsis Event Note - Focused Exam Vital Signs: Vital Signs Temp Pulse Resp BP Pulse Ox 09/20/19 12:22 97.7 F 72 18 182/109 H 99 Date Exam was Performed: 09/20/19 Time Exam was Performed: 13:16
[2019-09-20] MEDS ORDERED: Ketorolac 60 MG/2 ML SDV IM ONE (12:27)
--- NOTE | 2019-09-20 13:05 | CR ---
Right foot: 2 views of the right foot were obtained. Good AP view was not obtained. Joint space narrowing is noted within the 1st MTP joint with slight osteophytes. Small plantar spur is noted. Soft tissue swelling is noted. Base of the metatarsals are poorly seen within the 2nd through 5th digits on this oblique view study. Other portions of the metatarsals appear intact. No discrete fracture or other abnormality is appreciated. Impression: 1. No good AP view which results in unevaluated base of the 2nd through 5th metatarsals. 2. Soft tissue swelling. 3. Other findings as noted above. 4. Nothing acute is definitely appreciated. Note: If patient remains symptomatic, 4 view follow-up study could be obtained in 10-14 days. Diagnostic code #2 This report was dictated in [place] Standard Time
== END 2019-09-20 13:51 | disposition home or self-care (01) ==
LOC: MW.ED 12:09
DX: M10.9 Gout, unspecified (principal); I10 Essential (primary) hypertension; Z88.5 Allergy status to narcotic agent; Z79.899 Other long term (current) drug therapy
CPT/HCPCS: 73620; 96372; 99283; J1885

== ENCOUNTER 2019-12-08 05:18 | Emergency (ER) | payer SELFPAY ==
[2019-12-08] MEDS ORDERED: Sodium Chloride 0.9% 10 ML Syringe FLUSH PRN (05:37)
[2019-12-08] MEDS ORDERED: Ondansetron 4 MG/2 ML SDV IVPUSH ONE (05:37)
[2019-12-08] MEDS ORDERED: Sodium Chloride 0.9% 1,000 ML IV ONE (05:37)
[2019-12-08] MEDS ORDERED: Sodium Chloride 0.9% 2.5 ML Syringe FLUSH PRN (05:37)
--- NOTE | 2019-12-08 05:42 | EDM.PDOC ---
ED HPI GENERAL MEDICAL PROBLEM - General Chief Complaint: General Stated Complaint: CHEST PAIN, SHORTNESS OF BREATH, VOMITING Time Seen by Provider: 12/08/19 05:39 Source of Information: Reports: Patient, Significant Other - History of Present Illness INITIAL COMMENTS - FREE TEXT/NARRATIVE: The patient is a 49-year-old female who presents to the ER with numerous complaints. Tonight, the patient was at work and she started feeling lightheaded and dizzy which she describes as a vertiginous sensation and she had to catch herself to keep from falling down. She also was nauseated and just not feeling well so her coworkers called her to come get her. The patient states that she has not been feeling well for at least a few months but worse over the last month. She states that she has been having a lot of of nausea and vomiting and she states she she never keeps anything down. No fevers , no diarrhea, but she feels fatigued. She also has been feeling short of breath constantly with intermittent chest pain. She cannot describe the symptoms or if anything makes them better or worse. Her main complaint is the persistent nausea and vomiting and just not feeling well. 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 ankle surgery Social & Family History - Family History Family Medical History: Noncontributory - Caffeine Use Caffeine Use: Reports: Soda - Living Situation & Occupation Living situation: Reports: , with Spouse Occupation: Employed ED ROS GENERAL - Review of Systems Review Of Systems: See Below (Positive for fatigue, positive for malaise, negative for fevers, negative for chills, positive for nausea and vomiting, negative for diarrhea, positive for intermittent chest pain, positive for shortness of breath, negative for headache, all other Positives and pertinent negatives as per HPI. All other pertinent systems were reviewed and are negative ) ED EXAM, GENERAL - Physical Exam Exam: See Below Free Text/Narrative:: Constitutional: No acute distress, Non-toxic appearance, smells of smoke, looks like she does not feel well HEENT.: Normocephalic, Atraumatic, PERRL, EOMI, External ears are atraumatic, nares are patent without epistaxis Neck: Normal range of motion, Trachea Midline, No stridor Respiratory.: No respiratory distress, No tachypnea, Lungs Clear to Auscultation bilaterally without wheezes, rales, or rhonchi Cardiovascular.: Regular rate and Rhythm without murmurs, rubs, or gallops, good peripheral perfusion GI: Abdomen soft and non tender, no masses, no rebound, rigidity, or guarding, mildly obese Genital Urinary: Deferred Musculoskeletal: Good range of motion. All 4 extremities present and atraumatic , no edema Back: Full Range of Motion Skin: Warm, Dry, Color is ethnicity appropriate, No acute rash. Lymphatic: No lymphadenopathy noted Neurological: Alert, Awake and oriented x 3, No focal deficits noted appreciate , GCS 15 Psych: Affect, Judgement, mood normal Course - Vital Signs Text/Narrative:: As I was interviewing the patient, her appears to be very frustrated with her. The patient's blood pressures currently 190/133 and per the , this is low for her. She is supposed to be taking hypertensive medications but she has not filled her prescriptions because she does not want to pay that much money. She also supposed to be followed with her primary care physician for other medical issues but she has not done so. There was some changes in the insurance and she was supposed to fill out some paperwork to get a new primary care physician but she has not done that either. I spoke with the patient and her in detail as all of the patient's symptoms have been ongoing for quite some time but have been getting worse lately and as such, numerous problems from an emergency perspective will not be present. I also spoke with him in detail that the patient cannot be having as much nausea and vomiting as she is describing as no human being can not have any liquid intake for an entire month and still be alive. I spoke very bluntly concerning her uncontrolled blood pressure and the potential consequences and everything associated with this. Emergency perspective, will get some basic blood work to make sure that the patient has not developed any type of renal failure, associated electrolyte disorders such as hypo-or hypernatremia, hypo-or hyperkalemia, hyperosmolar syndrome, anemia, or any type of leukemias or lymphomas, etc. We will also check a TSH to screen for any clinically relevant hypothyroidism. While waiting for labs return, we will look into the records and it is evident that none of these patient's complaints are new in his matter fact the patient has been seen by several physicians for these complaints which include the nausea and the vomiting almost a year ago, as well as cardiology for chest pains. Lab work returned and is unremarkable from an emergency standpoint and at this time I needed to point for the patient to start taking care of herself, get herself a primary care physician, and to follow-up appropriately. Stable for discharge. Last Recorded V/S: Last Vital Signs Temp 36.2 C 12/08/19 05:20 Pulse 79 12/08/19 05:54 Resp 20 12/08/19 05:54 BP 189/126 H 12/08/19 05:54 Pulse Ox 99 12/08/19 05:54 - Orders/Labs/Meds Orders: Active Orders 24 hr Category Date Time Status Sodium Chloride 0.9% [Normal Saline] 1,000 ml Med 12/08/19 05:37 Active IV BOLUS Sodium Chloride 0.9% [Saline Flush] Med 12/08/19 05:37 Active 10 ml FLUSH ASDIRECTED PRN Sodium Chloride 0.9% [Saline Flush] Med 12/08/19 05:37 Active 2.5 ml FLUSH ASDIRECTED PRN Saline Lock Insert [OM.PC] Stat Oth 12/08/19 05:37 Ordered Medication Orders Sodium Chloride (Normal Saline) 1,000 mls @ 999 mls/hr IV BOLUS ONE Stop: 12/08/19 06:37 Last Admin: 12/08/19 05:51 Dose: 999 mls/hr Sodium Chloride (Saline Flush) 10 ml FLUSH ASDIRECTED PRN PRN Reason: Keep Vein Open Sodium Chloride (Saline Flush) 2.5 ml FLUSH ASDIRECTED PRN PRN Reason: Keep Vein Open Labs: Laboratory Tests 12/08/19 12/08/19 Range/Units 05:45 05:45 WBC 2.32 L (4.0-11.0) K/uL RBC 4.17 L (4.30-5.90) M/uL Hgb 9.9 L (12.0-16.0) g/dL Hct 33.5 L (36.0-46.0) % MCV 80.3 (80.0-98.0) fL MCH 23.7 L (27.0-32.0) pg MCHC 29.6 L (31.0-37.0) g/dL RDW Std Deviation 48.4 (28.0-62.0) fl RDW Coeff of Raissa 17 H (11.0-15.0) % Plt Count 344 (150-400) K/uL MPV 10.10 (7.40-12.00) fL Add Manual Diff YES Neutrophils % (Manual) 46 L (48.0-80.0) % Lymphocytes % (Manual) 36 (16.0-40.0) % Monocytes % (Manual) 8 (0.0-15.0) % Eosinophils % (Manual) 2 (0.0-7.0) % Basophils % (Manual) 8 H (0.0-1.5) % Nucleated RBC % 0.0 /100WBC Absolute Seg Neuts 1.1 L (1.4-5.7) Lymphocytes # (Manual) 0.8 (0.6-2.4) Monocytes # (Manual) 0.2 (0.0-0.8) Eosinophils # (Manual) 0.0 (0.0-0.7) Basophils # (Manual) 0.2 H (0.0-0.1) Nucleated RBCs # 0 K/uL Sodium 139 (136-145) mmol/L Potassium 3.6 (3.5-5.1) mmol/L Chloride 102 (98-107) mmol/L Carbon Dioxide 27.2 (21.0-32.0) mmol/L BUN 17 (7.0-18.0) mg/dL Creatinine 0.8 (0.6-1.0) mg/dL Est Cr Clr Drug Dosing 86.75 mL/min Estimated GFR (MDRD) > 60.0 ml/min Glucose 102 (74-106) mg/dL Calcium 8.4 L (8.5-10.1) mg/dL Total Bilirubin 0.3 (0.2-1.0) mg/dL AST 16 (15-37) IU/L ALT 17 (14-63) IU/L Alkaline Phosphatase 75 (46-116) U/L Total Protein 8.6 H (6.4-8.2) g/dL Albumin 3.4 (3.4-5.0) g/dL Globulin 5.2 H (2.6-4.0) g/dL Albumin/Globulin Ratio 0.7 L (0.9-1.6) TSH 3rd Generation 1.72 (0.36-3.74) uIU/mL Meds: Medications Generic Name Dose Route Start Last Admin Trade Name Freq PRN Reason Stop Dose Admin Sodium Chloride 1,000 mls @ 999 mls/hr 12/08/19 05:37 12/08/19 05:51 Normal Saline IV 12/08/19 06:37 999 mls/hr BOLUS ONE Administration Sodium Chloride 10 ml 12/08/19 05:37 Saline Flush FLUSH ASDIRECTED PRN Keep Vein Open Sodium Chloride 2.5 ml 12/08/19 05:37 Saline Flush FLUSH ASDIRECTED PRN Keep Vein Open Discontinued Medications Generic Name Dose Route Start Last Admin Trade Name Freq PRN Reason Stop Dose Admin Ondansetron HCl 4 mg 12/08/19 05:37 12/08/19 05:51 Zofran IVPUSH 12/08/19 05:38 4 mg ONETIME ONE Administration Departure - Departure Time of Disposition: 06:28 Disposition: Home, Self-Care 01 Condition: Good Clinical Impression: Hypertension, Malaise - Discharge Information *PRESCRIPTION DRUG MONITORING PROGRAM REVIEWED*: Not Applicable *COPY OF PRESCRIPTION DRUG MONITORING REPORT IN PATIENT FLORES: Not Applicable Instructions: Hypertension, [id number], Preventing Hypertension Referrals: PCP,None [Primary Care Provider] - Forms: ED Department Discharge Sepsis Event Note - Evaluation Sepsis Screening Result: No Definite Risk - Focused Exam Vital Signs: Vital Signs Temp Pulse Resp BP Pulse Ox 12/08/19 05:54 79 20 189/126 H 99 12/08/19 05:20 36.2 C 81 14 191/133 H 100 Date Exam was Performed: 12/08/19 Time Exam was Performed: 06:27 - My Orders Last 24 Hours: My Active Orders 12/08/19 05:37 Sodium Chloride 0.9% [Normal Saline] 1,000 ml IV BOLUS Sodium Chloride 0.9% [Saline Flush] 10 ml FLUSH ASDIRECTED PRN Sodium Chloride 0.9% [Saline Flush] 2.5 ml FLUSH ASDIRECTED PRN Saline Lock Insert [OM.PC] Stat - Assessment/Plan Last 24 Hours: My Active Orders 12/08/19 05:37 Sodium Chloride 0.9% [Normal Saline] 1,000 ml IV BOLUS Sodium Chloride 0.9% [Saline Flush] 10 ml FLUSH ASDIRECTED PRN Sodium Chloride 0.9% [Saline Flush] 2.5 ml FLUSH ASDIRECTED PRN Saline Lock Insert [OM.PC] Stat
[2019-12-08 06:19] LABS: BLOOD UREA NITROGEN,BUN 17 mg/dL (7.0-18.0); CARBON DIOXIDE,CO2 27.2 mmol/L (21.0-32.0); CHLORIDE,CL 102 mmol/L (98-107); GLUCOSE RANDOM 102 mg/dL (74-106); POTASSIUM,K 3.6 mmol/L (3.5-5.1); SODIUM,NA 139 mmol/L (136-145)
== END 2019-12-08 06:38 | disposition home or self-care (01) ==
LOC: MW.ED 05:18
DX: I10 Essential (primary) hypertension (principal); R53.81 Other malaise; Z88.5 Allergy status to narcotic agent
CPT/HCPCS: 36415; 80053; 84443; 85025; 99283; J2405; J7030

== ENCOUNTER 2020-01-30 19:24 | Emergency (ER) | payer OTHER ==
[2020-01-30] MEDS ORDERED: cefTRIAXone 1 GM in Lidocaine 1% 4 ML IM ONE (19:47)
--- NOTE | 2020-01-30 19:56 | EDM.PDOC ---
ED HPI GENERAL MEDICAL PROBLEM - General Chief Complaint: Upper Extremity Injury/Pain Stated Complaint: right arm swollen Time Seen by Provider: 01/30/20 19:24 Source of Information: Reports: Patient History Limitations: Reports: No Limitations - History of Present Illness INITIAL COMMENTS - FREE TEXT/NARRATIVE: HISTORY OF PRESENT ILLNESS: Patient is a 49-year-old female who presents to the ER with complaints of infection to her right hand. Patient states that 2 days ago she was working in the garden and unsure if she was poked by something or stung by an insect. She felt redness of the hand which is extended up to her right arm just above the elbow. Rates the pain a 7 out of 10, constant, throbbing in nature. Had scant clear oozing. No purulent discharge. No history of diabetes or immunocompromise. Has been taking Benadryl but no other medications. Denies any difficulty breathing, swallowing, tongue lip or throat swelling. No chest pain. Denies any fevers or chills. REVIEW OF SYSTEMS: Other than the symptoms associated with the present events, the following is reported with regard to recent health: General: (-) fever. HENT: (-) congestion. Respiratory: (-) cough. Cardiovascular: (-) chest pain. GI: (-) abdominal pain. : (-) urinary complaints. Musculoskeletal: (-) other aches or pains. Endocrine: (-) generalized weakness. Neurological: (-) localized weakness. Skin: (+) cellulitis PAST MEDICAL HISTORY: reviewed as per nursing notes SOCIAL HISTORY: reviewed as per nursing notes, MEDICATIONS: Per nurse's note ALLERGIES: Per nurse's note, reviewed by me PHYSICAL EXAMINATION: GENERALIZED APPEARANCE: well developed, well nourished in mild distress VITAL SIGNS: Per nurse's note, reviewed by me SKIN: Warm, dry; (-) cyanosis; right hand thenar eminence with cellulitis and scant clear serous discharge. No fluctuance. No crepitus. Pain not out of proortion to examination. Lymphangitis extending up just above the right antecubital fossa. No circumferential nature to the cellulitis. Involvement of digits. HEAD: (-) scalp swelling, (-) tenderness. EYES: (-) conjunctival pallor, (-) scleral icterus. ENMT: (-) stridor; mucous membranes moist. NECK: (-) tenderness, (-) stiffness, CHEST AND RESPIRATORY: (-) rales, (-) rhonchi, (-) wheezes; breath sounds equal bilaterally. HEART AND CARDIOVASCULAR: (-) irregularity; (-) murmur, (-) gallop. cap refill <2 sec. ABDOMEN AND GI: Soft; (-) tenderness, (-) guarding, (-) rebound, (-) palpable masses, EXTREMITIES: (-) bony deformity. see skin exam. FROM. 5/5+ strength NEURO AND PSYCH: Alert. Cranial nerves grossly intact; strength symmetric. gait steady. sensation intact. EMERGENCY DEPARTMENT COURSE AND TREATMENT: Patient's condition remained stable during Emergency Department evaluation. Patient seen and evaluated at bedside. She has cellulitis with lymphangitis. No suspicion for necrotizing fasciitis or sepsis at this time. Patient is amenable to trial outpatient medications. She understands the need for close follow up. She will be given Rocephin 1 g IM here. Will be discharged home on clindamycin. She understands importance of compliance with the medication. She also understands the need to follow-up without fail with PCP in 24 to 48 hours. She must return to the ED immediately with any spreading infection or any new or worsening symptoms. Patient understands that if outpatient trial has failed she may require inpatient admission. PLAN AND FOLLOW-UP: Patient received written and verbal instructions regarding this condition. Return to ED immediately with any new or worsening symptoms. Follow up to be arranged by Patient with pcp in 1-2 days for further evaluation. Given discharge precautions. Patient expressed verbal understanding. Right Hand Pain Score (Numeric/FACES): 7 - Related Data Allergies Allergy/AdvReac Type Severity Reaction Status Date / Time codeine Allergy Hives Verified 12/08/19 05:34 Home Meds: Home Meds Acetaminophen [Tylenol] 650 mg PO Q4H PRN tablet 04/26/19 [Rx] clindamycin HCL [Clindamycin HCl] 300 mg PO TID 10 Days #30 capsule 01/30/20 [Rx ] Past Medical History HEENT History: Reports: None Cardiovascular History: Reports: Hypertension Other Cardiovascular History: has not taken htn or "water pill" in over a month Respiratory History: Reports: None Other Respiratory History: pneumonia Gastrointestinal History: Reports: GERD Other Gastrointestinal History: acid reflux Genitourinary History: Reports: None 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: Musculoskeletal History: Reports: Back Pain, Chronic Neurological History: Reports: None Psychiatric History: Reports: None Endocrine/Metabolic History: Reports: None Hematologic History: Reports: Anemia Immunologic History: Reports: None Oncologic (Cancer) History: Reports: None Dermatologic History: Reports: None - Infectious Disease History Infectious Disease History: Reports: None - Past Surgical History HEENT Surgical History: Reports: Other (See Below) Other HEENT Surgeries/Procedures: Facial Trauma Musculoskeletal Surgical History: Reports: Other (See Below) Other Musculoskeletal Surgeries/Procedures:: back surgery. ankle surgery Social & Family History - Family History Family Medical History: Noncontributory - Tobacco Use Smoking Status *Q: Never Smoker Second Hand Smoke Exposure: No - Caffeine Use Caffeine Use: Reports: Energy Drinks - Recreational Drug Use Recreational Drug Use: No - Living Situation & Occupation Living situation: Reports: , with Spouse Occupation: Employed Review of Systems - Review of Systems Review Of Systems: See Below (see dictation) ED EXAM, GENERAL - Physical Exam Exam: See Below (see dictation) Course - Vital Signs Last Recorded V/S: Last Vital Signs Temp 98.0 F 01/30/20 19:39 Pulse 104 H 01/30/20 19:39 Resp 17 01/30/20 19:39 BP 166/112 H 01/30/20 19:39 Pulse Ox 96 01/30/20 19:39 - Orders/Labs/Meds Orders: Active Orders 24 hr Category Date Time Status cefTRIAXone [Rocephin] 1 gm Med 01/30/20 19:47 Ordered Lidocaine 1% [Xylocaine-MPF 1%] 4 ml IM ONETIME Medication Orders Ceftriaxone Sodium 1 gm/ (Lidocaine HCl) 4 mls @ 4 mls/sec IM ONETIME ONE Stop: 01/30/20 19:48 Meds: Medications Generic Name Dose Route Start Last Admin Trade Name Freq PRN Reason Stop Dose Admin Ceftriaxone Sodium 1 gm/ 4 mls @ 4 mls/sec 01/30/20 19:47 Lidocaine HCl IM 01/30/20 19:48 ONETIME ONE Departure - Departure Time of Disposition: 19:49 Disposition: Home, Self-Care 01 Condition: Good Clinical Impression: Cellulitis - Discharge Information *PRESCRIPTION DRUG MONITORING PROGRAM REVIEWED*: Not Applicable *COPY OF PRESCRIPTION DRUG MONITORING REPORT IN PATIENT FLORES: Not Applicable Prescriptions: clindamycin HCL [Clindamycin HCl] 300 mg PO TID 10 Days #30 capsule Instructions: Cellulitis, Adult Referrals: PCP,None [Primary Care Provider] - Td Da Silva [Ordering Only Provider] - 1 Day Care Plan Goals: The following information is given to patients seen in the emergency department who are being discharged to home. This information is to outline your options for follow-up care. We provide all patients seen in our emergency department with a follow-up referral. The need for follow-up, as well as the timing and circumstances, are variable depending upon the specifics of your emergency department visit. If you don't have a primary care physician on staff, we will provide you with a referral. We always advise you to contact your personal physician following an emergency department visit to inform them of the circumstance of the visit and for follow-up with them and/or the need for any referrals to a consulting specialist. The emergency department will also refer you to a specialist when appropriate. This referral assures that you have the opportunity for follow-up care with a specialist. All of these measure are taken in an effort to provide you with optimal care, which includes your follow-up. Under all circumstances we always encourage you to contact your private physician who remains a resource for coordinating your care. When calling for follow-up care, please make the office aware that this follow-up is from your recent emergency room visit. If for any reason you are refused follow-up, please contact the [facility] Emergency Department at and asked to speak to the emergency department charge nurse. Sepsis Event Note - Evaluation Sepsis Screening Result: No Definite Risk - Focused Exam Vital Signs: Vital Signs Temp Pulse Resp BP Pulse Ox 01/30/20 19:39 98.0 F 104 H 17 166/112 H 96 Date Exam was Performed: 01/30/20 Time Exam was Performed: 19:49 - My Orders Last 24 Hours: My Active Orders 01/30/20 19:47 cefTRIAXone [Rocephin] 1 gm Lidocaine 1% [Xylocaine-MPF 1%] 4 ml IM ONETIME - Assessment/Plan Last 24 Hours: My Active Orders 01/30/20 19:47 cefTRIAXone [Rocephin] 1 gm Lidocaine 1% [Xylocaine-MPF 1%] 4 ml IM ONETIME
== END 2020-01-30 20:34 | disposition home or self-care (01) ==
LOC: MW.ED 19:24
DX: L03.113 Cellulitis of right upper limb (principal); Z88.5 Allergy status to narcotic agent
CPT/HCPCS: 96372; 99283; J0696; J2001